=== PATIENT | male | born 1935 | race Caucasian/White ===

== ENCOUNTER 2017-01-20 17:40 | Emergency (ER) | payer BC ==
[~2017-01-20] VITALS: Ht 182.9 cm; Wt 97.5 kg
[2017-01-20] MEDS ORDERED: CYANOCOBAL1000 MCG/2 IJ (17:59)
[2017-01-20] MEDS ORDERED: HYDROCHLOROTHIA25 MG ORAL (17:59)
[2017-01-20] MEDS ORDERED: PROSCAR5 MG ORAL (17:59)
[2017-01-20] MEDS ORDERED: ELIQUIS5 MG PO (17:59)
[2017-01-20] MEDS ORDERED: NAPROXEN500 M2 ORAL (17:59)
[2017-01-20] MEDS ORDERED: METFORMIN HCL500 M1 ORAL (17:59)
[2017-01-20] MEDS ORDERED: SUCRALFATE1 GM ORAL (17:59)
[2017-01-20] MEDS ORDERED: MAPAP500 MG/15 PO (17:59)
[2017-01-20] MEDS ORDERED: ZANTAC150 MG ORAL (17:59)
[2017-01-20] MEDS ORDERED: LOSARTAN POTASS50 MG ORAL (17:59)
--- NOTE | 2017-01-20 18:16 | Emergency Room Report ---
History of Present Illness General Chief Complaint: Lower Extremity Injury Source: Patient, Medical Record Present Illness HPI Patient sustained a fall last night he reports that he was getting up to go to the restroom This morning he had pain to the right hip her course of the pain as a she significantly improved However as he lives in a boarding care facility he was requested for further imaging and emergency room evaluation Denies any syncopal episode denies any lightheadedness denies any chest pain or shortness of breath Patient point to the right inguinal area right hip region for the discomfort Denies any focal weakness denies any neuropathy Allergies: Coded Allergies: No Known Allergies (Unverified , 01/20/17) Patient History Past Medical History: see triage record Pertinent Family History: none Reviewed Nursing Documentation: PMH: Agreed, PSxH: Agreed Nursing Documentation-PMH Past Medical History: No History, Except For Hx Hypertension: Yes Hx Diabetes: Yes Hx Gastrointestinal Problems: Yes - GI bleed Review of Systems All Other Systems: negative except mentioned in HPI Physical Exam Vital Signs Date Time Temp Pulse Resp B/P Pulse Ox O2 Delivery O2 Flow Rate FiO2 01/20/17 17:45 97.9 84 18 132/74 98 Room Air Sp02 EP Interpretation: reviewed, normal General Appearance: well appearing, no apparent distress Head: normocephalic, atraumatic Eyes: bilateral eye EOMI, bilateral eye PERRL ENT: hearing grossly normal, normal pharynx, TMs + canals normal, uvula midline Neck: full range of motion, supple, no meningismus, no bony tend Respiratory: lungs clear, normal breath sounds, no rhonchi, no respiratory distress, no retraction, no accessory muscle use Cardiovascular #1: normal peripheral pulses, regular rate, rhythm, no edema, no gallop, no JVD, no murmur Gastrointestinal: normal bowel sounds, non tender, soft, no organomegaly, non- distended, no guarding, no pulsatile mass, no rebound, other - Right inguinal hernia Genitourinary: no CVA tenderness Musculoskeletal: other - Patient is able to pronate and supinate the right lower extremity, he was able to lift any, neurovascularly intact Neurologic: oriented x3, responsive, motor strength/tone normal, sensory intact Psychiatric: mood/affect normal Skin: normal color, no rash, warm/dry, palpation normal Lymphatic: normal inspection, no adenopathy Medical Decision Making Diagnostic Impression: Primary Impression: Contusion of hip Additional Impression: Hernia ER Course Given the patient's complaints and presentation Imaging study was obtained At this time patient CT did not show any obvious acute fracture There was questionable stranding noted somewhat nonspecific This is clinically likely in line with the patient's inguinal hernia Patient stable for close outpatient followup Rhythm Strip Diag. Results EP Interpretation: yes Rate: 88 Rhythm: NSR, no PVC's, no ectopy CT/MRI/US Diagnostic Results CT/MRI/US Diagnostic Results : Impression CT pelvic: Impression: No acute fracture identified. 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 Lower lumbar spondylosis Atherosclerotic vascular disease Moderate size right inguinal hernia containing bowel. Please correlate clinically and evaluate for incarceration. Last Vital Signs Date Time Temp Pulse Resp B/P Pulse Ox O2 Delivery O2 Flow Rate FiO2 01/20/17 17:45 97.9 84 18 132/74 98 Room Air Status: improved Disposition: XFER SNF Condition: Improved Additional Instructions: Patient is provided with the discharge instructions notified to follow up with primary doctor in the next 2-3 days otherwise return to the er with any worsening symptoms. Please note that this report is being documented using BeMyGuest technology. This can lead to erroneous entry secondary to incorrect interpretation by the dictating instrument. CAMERON SKELTON D.O. Jan 20, 2017 18:16
[2017-01-20 19:15] VITALS: BP 119/67
--- NOTE | 2017-01-21 09:40 | Diagnostic Imaging Report ---
Indication: Abdominal pain Technique: Continuous helical transaxial imaging of the pelvis was obtained from the iliac crest to the pubic symphysis. Coronal 2-D reformats were also obtained. Study obtained in a Siemens sensation [address] Total Dose length Product (DLP): [address] Dose Index Volume (CTDIvol): 18 mGy Comparison: None Findings: The bones are osteopenic. There is no acute fracture identified. There is no malalignment. Degenerative changes of both hips and sacroiliac joints characterized by periarticular osteophytes and joint space narrowing noted. Degenerative changes of the lower lumbar spine with vacuum phenomena and hypertrophic spurs noted. There is a right inguinal hernia containing bowel. Please correlate clinically. Arterial vascular calcifications are moderate. Impression: No acute fracture identified. 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 Lower lumbar spondylosis Atherosclerotic vascular disease Moderate size right inguinal hernia containing bowel. Please correlate clinically and evaluate for incarceration. Dr. Carr has communicated the preliminary results to the Emergency Department. There are no significant discrepancies. The CT scanner at [facility] is accredited by the [employer] and the scans are performed using dose optimization techniques as appropriate to a performed exam including Automatic Exposure control.
== END 2017-01-20 21:00 ==
LOC: EDBD 17:40 → EMR 18:40
DX: S70.01XA Contusion of right hip, initial encounter (principal); W19.XXXA Unspecified fall, initial encounter; Y93.9 Activity, unspecified; Y92.9 Unspecified place or not applicable; I10 Essential (primary) hypertension; E11.9 Type 2 diabetes mellitus without complications; K40.90 Unilateral inguinal hernia, without obstruction or gangrene, not specified as recurrent; M47.896 Other spondylosis, lumbar region; I70.90 Unspecified atherosclerosis; M85.88 Other specified disorders of bone density and structure, other site
CPT/HCPCS: 72192; 99284

== ENCOUNTER 2017-05-16 17:46 | Inpatient (IN) | payer BC ==
[~2017-05-16] VITALS: Ht 190.5 cm; Wt 90.3 kg
[~2017-05-16 17:46] MED LIST: CYANOCOBAL1000 MCG/2 IJ; ELIQUIS5 MG PO; HYDROCHLOROTHIA25 MG ORAL; LOSARTAN POTASS50 MG ORAL; MAPAP500 MG/15 PO; METFORMIN HCL500 M1 ORAL; NAPROXEN500 M2 ORAL; PROSCAR5 MG ORAL; SUCRALFATE1 GM ORAL; ZANTAC150 MG ORAL
[2017-05-16 18:33] LABS: BASOPHILS % (AUTO) 0.5 % (0.0-2.0); EOSINOPHILS % (AUTO) 0.6 % (0.0-3.0); LYMPHOCYTES % (AUTO) 3.2 % (20.0-45.0); MEAN CORPUSCULAR HEMOGLOBIN 30.6 PG (27.0-31.0); MEAN CORPUSCULAR HGB CONC 32.8 G/DL (32.0-36.0); MEAN CORPUSCULAR VOLUME 94 FL (80-99); MEAN PLATELET VOLUME 4.8 FL (6.5-10.1); MONOCYTES % (AUTO) 6.1 % (1.0-10.0); NEUTROPHILS % (AUTO) 89.7 % (45.0-75.0); PLATELET COUNT 273 K/UL (150-450); RED BLOOD COUNT 3.92 M/UL (4.70-6.10); RED CELL DISTRIBUTION WIDTH 13.4 % (11.6-14.8); WHITE BLOOD COUNT 13.7 K/UL (4.8-10.8)
[2017-05-16 18:35] VITALS: BP 124/67
[2017-05-16 18:38] LABS: PROTHROMBIN TIME 10.7 SEC (9.30-11.50)
[2017-05-16 18:46] LABS: ALANINE AMINOTRANSFERASE 7 U/L (3-41); ALBUMIN/GLOBULIN RATIO 1.4 (1.0-2.7); ANION GAP 14 (5-15); ASPARTATE AMINO TRANSFERASE 14 U/L (5-40); CARBON DIOXIDE 23 mEQ/L (20-30); CHLORIDE 92 mEQ/L (98-107); HEMOLYSIS 3; SODIUM 129 mEQ/L (135-145); TOTAL PROTEIN 6.6 g/dL (6.6-8.7); TROPONIN I < 0.30 ng/mL (<=0.30)
[2017-05-16 18:52] LABS: REFLEX LACTIC ACID YES OR NO YES
[2017-05-16 18:57] LABS: CKMB 2.5 ng/mL (< 6.7)
[2017-05-16] MEDS ORDERED: CARVEDILOL6.25 MG ORAL (18:58)
[2017-05-16] MEDS ORDERED: LEXAPRO10 MG ORAL (18:58)
[2017-05-16] MEDS ORDERED: MAPAP500 M2 PO (19:00)
[2017-05-16] MEDS ORDERED: EC-NAPROSYN500 MG PO (19:01)
[2017-05-16] MEDS ORDERED: ZANTAC150 MG ORAL (19:01)
[2017-05-16] MEDS ORDERED: CARAFATE1 G1 ORAL (19:01)
[2017-05-16] MEDS ORDERED: OXYBUTYNIN CHLOR5 M2 PO (19:01)
[2017-05-16] MEDS ORDERED: VITAMIN D22000 UNIT PO (19:04)
[2017-05-16] MEDS ORDERED: TAMSULOSIN HCL0.4 MG ORAL (19:04)
[2017-05-16] MEDS ORDERED: VITAMIN B-12100 MC1 PO (19:04)
[2017-05-16] MEDS ORDERED: BENZONATATE100 MG ORAL (19:05)
[2017-05-16] MEDS ORDERED: ZYRTEC10 MG ORAL (19:05)
[2017-05-16] MEDS ORDERED: LIDODERM700 M1 TOPIC (19:06)
[2017-05-16] MEDS ORDERED: DOCUSATE SODIU100 MG ORAL (19:06)
[2017-05-16] MEDS ORDERED: TRAZODONE HCL100 MG ORAL (19:07)
[2017-05-16 19:18] VITALS: BP 119/73
[2017-05-16] MEDS ORDERED: Ampicillin/Sulbactam Sod 3 GM in NS 110 ML IVPB ONE (19:30)
[2017-05-16 19:48] LABS: APPEARANCE,URINE SLIGHTLY CLOUDY; KETONES,URINE 1+ (NEGATIVE); LEUKOCYTE ESTERASE ,URINE 2+ (NEGATIVE); NITRITE,URINE POSITIVE (NEGATIVE); PH,URINE 6 (4.5-8.0); PROTEIN,URINE 1+ (NEGATIVE); UROBILINOGEN,URINE NORMAL MG/DL (0.0-1.0)
[2017-05-16] MEDS ORDERED: Unasyn 3gm Inj ONE (19:48)
[2017-05-16 19:59] LABS: BACTERIA,URINE MANY /HPF; RBC,URINE 0-2 /HPF (0 - 0); WBC,URINE 20-30 /HPF (0 - 0)
[2017-05-16 20:30] VITALS: BP 122/70
[2017-05-16 22:15] VITALS: BP 120/68
[2017-05-16] MEDS ORDERED: Albuterol/Ipratropium 3ml neb HHN PRN (22:45)
[2017-05-16] MEDS ORDERED: Nitroglycerin Subl 0.4mg tab SL PRN (22:45)
[2017-05-16] MEDS ORDERED: Miralax 17gm pkt ORAL PRN (22:45)
[2017-05-16] MEDS ORDERED: Morphine Sulfate 2mg/ml Inj IVP PRN (22:45)
[2017-05-16 23:50] VITALS: BP 122/70
--- NOTE | 2017-05-17 00:28 | Emergency Room Report ---
History of Present Illness General Chief Complaint: Generalized Weakness Source: Patient, EMS Present Illness HPI This is an 82-year-old male who presented after increased weakness. Patient gradual onset of symptoms. The patient having increased difficulty standing. Patient had the abuse of been able to ambulate with a walker. Patient has a power of employment law attorney who I attempted to contact however he was unavailable. The patient reports having previously been living at [facility]. The patient any fever. He denied any difficulty with urination. History is limited by patient's mental status Allergies: Coded Allergies: No Known Allergies (Unverified , 01/20/17) Patient History Reviewed Nursing Documentation: PMH: Agreed, PSxH: Agreed Nursing Documentation-PMH Past Medical History: No History, Except For Hx Hypertension: Yes Hx Pacemaker: No - ANEMIA Hx Diabetes: Yes Hx Gastrointestinal Problems: Yes - HERNIA, GI BLEED, BPH Review of Systems All Other Systems: limited - by mental status Physical Exam Vital Signs Date Time Temp Pulse Resp B/P (MAP) Pulse Ox O2 Delivery O2 Flow Rate FiO2 05/16/17 17:40 136 16 138/78 95 Room Air 05/16/17 18:35 97.6 Sp02 EP Interpretation: reviewed, normal General Appearance: normal inspection, well appearing, alert, mild distress, other - GCS 14 confused, Chronically Ill Head: atraumatic ENT: normal ENT inspection, hearing grossly normal, normal voice Neck: normal inspection, full range of motion, supple, no bony tend Respiratory: normal inspection, lungs clear, normal breath sounds, no respiratory distress, no retraction, no wheezing Cardiovascular #1: no edema, tachycardia Gastrointestinal: normal inspection, normal bowel sounds, non tender, soft, no guarding, no hernia Genitourinary: no CVA tenderness Musculoskeletal: normal inspection, back normal, normal range of motion Neurologic: normal inspection, alert, responsive, speech normal, motor weakness - bilateral lower extremity, dtr slight diminished but present bilateral patellar Psychiatric: normal inspection, judgement/insight normal, mood/affect normal Skin: normal inspection, normal color, no rash Medical Decision Making Diagnostic Impression: Primary Impression: Sepsis Additional Impressions: Urinary tract infection Weakness of both legs ER Course Patient presented generalized weakness. Differential diagnosis included was not limited to anemia, urinary tract infection, electrolyte abnormality, hypothyroidism, myocardial infarction, myasthenia gravis, dehydration, among others. Because of complexity of patient's case laboratory testing and imaging studies were ordered.Patient was noted to have evidence of the bilateral lower extremity weakness. This may represent Guillanne Corona however patient does appear to have evidence of sepsis. The patient was noted to be afebrile. Dr. Jorge Luis Lindsey was contacted and requested the patient be admitted to Dr. evans for inpatient management. Chest Xray interpreted by me 1 view showed no evident infiltrate, normal mediastinum, and normal cardiac size. Right hemidiaphragm is elevated Labs Test 05/16/17 18:20 05/16/17 19:35 05/16/17 20:25 White Blood Count 13.7 K/UL (4.8-10.8) Red Blood Count 3.92 M/UL (4.70-6.10) Hemoglobin 12.0 G/DL (14.2-18.0) Hematocrit 36.6 % (42.0-52.0) Mean Corpuscular Volume 94 FL (80-99) Mean Corpuscular Hemoglobin 30.6 PG (27.0-31.0) Mean Corpuscular Hemoglobin Concent 32.8 G/DL (32.0-36.0) Red Cell Distribution Width 13.4 % (11.6-14.8) Platelet Count 273 K/UL (150-450) Mean Platelet Volume 4.8 FL (6.5-10.1) Neutrophils (%) (Auto) 89.7 % (45.0-75.0) Lymphocytes (%) (Auto) 3.2 % (20.0-45.0) Monocytes (%) (Auto) 6.1 % (1.0-10.0) Eosinophils (%) (Auto) 0.6 % (0.0-3.0) Basophils (%) (Auto) 0.5 % (0.0-2.0) Prothrombin Time 10.7 SEC (9.30-11.50) Prothromb Time International Ratio 1.0 (0.9-1.1) Activated Partial Thromboplast Time 29 SEC (23-33) Sodium Level 129 mEQ/L (135-145) Potassium Level 4.0 mEQ/L (3.4-4.9) Chloride Level 92 mEQ/L (98-107) Carbon Dioxide Level 23 mEQ/L (20-30) Anion Gap 14 (5-15) Blood Urea Nitrogen 11 mg/dL (7-23) Creatinine 1.0 mg/dL (0.7-1.2) Estimat Glomerular Filtration Rate mL/min (>60) Glucose Level 175 mg/dL (74-106) Calcium Level 9.0 mg/dL (8.6-10.2) Total Bilirubin 0.5 mg/dL (0.0-1.2) Aspartate Amino Transf (AST/SGOT) 14 U/L (5-40) Alanine Aminotransferase (ALT/SGPT) 7 U/L (3-41) Alkaline Phosphatase 80 U/L (40-129) Total Creatine Kinase 65 U/L (38-174) Creatine Kinase MB 2.5 ng/mL (< 6.7) Creatine Kinase MB Relative Index 3.8 Troponin I < 0.30 ng/mL (<=0.30) Total Protein 6.6 g/dL (6.6-8.7) Albumin 3.9 g/dL (3.5-5.2) Globulin 2.7 g/dL Albumin/Globulin Ratio 1.4 (1.0-2.7) Urine Color Pale yellow Urine Appearance Slightly cloudy Urine pH 6 (4.5-8.0) Urine Specific [place] 1.010 (1.005-1.035) Urine Protein 1+ (NEGATIVE) Urine Glucose (UA) Negative (NEGATIVE) Urine Ketones 1+ (NEGATIVE) Urine Occult Blood Negative (NEGATIVE) Urine Nitrite Positive (NEGATIVE) Urine Bilirubin Negative (NEGATIVE) Urine Urobilinogen Normal MG/DL (0.0-1.0) Urine Leukocyte Esterase 2+ (NEGATIVE) Urine RBC 0-2 /HPF (0 - 0) Urine WBC 20-30 /HPF (0 - 0) Urine Squamous Epithelial Cells None /LPF (NONE/OCC) Urine Bacteria Many /HPF (NONE) Lactic Acid Level 1.50 mmol/L (0.66-2.22) EKG Diagnostic Results Rate: normal Rhythm: NSR ST Segments: no acute changes ASA given to the pt in ED: No Rhythm Strip Diag. Results EP Interpretation: yes Rhythm: NSR, no PVC's Last Vital Signs Date Time Temp Pulse Resp B/P (MAP) Pulse Ox O2 Delivery O2 Flow Rate FiO2 05/17/17 00:05 98.3 86 16 122/70 97 Room Air Status: improved Disposition: ADMITTED INPATIENT Condition: Serious Referrals: NON PHYSICIAN (PCP) Isak Voss May 17, 2017 00:28
[2017-05-17] MEDS ORDERED: Vancomycin 1 GM in D5W 275 ML IV SCH (00:30)
[2017-05-17] MEDS ORDERED: Vancomycin 1gm inj IVPB ONE (01:19)
[2017-05-17 01:37] LABS: APPEARANCE,URINE CLEAR; KETONES,URINE 1+ (NEGATIVE); LEUKOCYTE ESTERASE ,URINE 1+ (NEGATIVE); NITRITE,URINE NEGATIVE (NEGATIVE); PH,URINE 6 (4.5-8.0); PROTEIN,URINE 2+ (NEGATIVE); UROBILINOGEN,URINE NORMAL MG/DL (0.0-1.0)
[2017-05-17 01:49] LABS: RBC,URINE 0 /HPF (0 - 0); WBC,URINE 0-2 /HPF (0 - 0)
[2017-05-17 04:21] VITALS: BP 116/78
[2017-05-17 04:22] VITALS: BP 122/75
[2017-05-17] MEDS: NovoLOG Insulin Flexpen SUBQ SCH ×4 (06:30→20:41)
[2017-05-17 08:00] VITALS: BP 141/82
[2017-05-17] MEDS ORDERED: Heparin 5000 units/ml inj SUBQ SCH (09:00)
[2017-05-17] MEDS ORDERED: Cefepime HCl 2 GM in D5W 110 ML IV SCH (09:00)
--- NOTE | 2017-05-17 10:01 | Consultation ---
Consult Note Consult Note ID DIC # [id number] JENIFER GARCIA M.D. May 17, 2017 10:01
[2017-05-17 10:23] LABS: BASOPHILS % (AUTO) 0.9 % (0.0-2.0); EOSINOPHILS % (AUTO) 3.4 % (0.0-3.0); MEAN CORPUSCULAR HEMOGLOBIN 30.7 PG (27.0-31.0); MEAN CORPUSCULAR HGB CONC 32.6 G/DL (32.0-36.0); MEAN CORPUSCULAR VOLUME 94 FL (80-99); MEAN PLATELET VOLUME 5.1 FL (6.5-10.1); MONOCYTES % (AUTO) 10.8 % (1.0-10.0); NEUTROPHILS % (AUTO) 66.9 % (45.0-75.0); PLATELET COUNT 287 K/UL (150-450); RED BLOOD COUNT 4.08 M/UL (4.70-6.10); RED CELL DISTRIBUTION WIDTH 13.9 % (11.6-14.8); WHITE BLOOD COUNT 6.5 K/UL (4.8-10.8)
[2017-05-17] MEDS: Carvedilol 6.25mg Tab ORAL SCH ×2 (10:32→20:41)
[2017-05-17] MEDS: Losartan 50mg tab ORAL SCH (10:32)
[2017-05-17 10:38] LABS: ALANINE AMINOTRANSFERASE 6 U/L (3-41); ALBUMIN/GLOBULIN RATIO 1.3 (1.0-2.7); ANION GAP 10 (5-15); ASPARTATE AMINO TRANSFERASE 14 U/L (5-40); CALCIUM 9.8 mg/dL (8.6-10.2); CARBON DIOXIDE 31 mEQ/L (20-30); CHLORIDE 97 mEQ/L (98-107); CREATININE 0.9 mg/dL (0.7-1.2); HEMOLYSIS 3; POTASSIUM 4.8 mEQ/L (3.4-4.9); SODIUM 138 mEQ/L (135-145); TOTAL PROTEIN 6.7 g/dL (6.6-8.7)
[2017-05-17] MEDS: Enoxaparin 100mg Inj SUBQ SCH ×2 (10:40→20:40)
[2017-05-17 12:00] VITALS: BP 139/82
--- NOTE | 2017-05-17 12:09 | Diagnostic Imaging Report ---
Indication: Shortness of breath Comparison: None Findings: Single view the chest shows normal cardiac size. Pulmonary vasculature normal. Lungs are clear. There is elevation of the right hemidiaphragm. Bones unremarkable. Impression: No acute chest disease Elevated right hemidiaphragm.
[2017-05-17] MEDS ORDERED: Azithromycin 500 MG in D5W 275 ML IV SCH (15:00)
--- NOTE | 2017-05-17 15:13 | History and Physical ---
History of Present Illness General Date patient seen: May 17, 2017 Reason for Hospitalization: Generalized Weakness Present Illness HPI 82-year-old male who presented after increased weakness. Patient gradual onset of symptoms. The patient having increased difficulty standing. Patient had the abuse of been able to ambulate with a walker. Patient has a power of [employer] rep who I attempted to contact however he was unavailable. The patient reports having previously been living at [facility]. The patient any fever. He denied any difficulty with urination. History is limited by patient' s mental status Allergies: Coded Allergies: No Known Allergies (Unverified , 01/20/17) Medication History Scheduled Acetaminophen (Mapap), 500 MG PO TID, (Reported) Acetaminophen (Mapap), 1,000 MG PO TID, (Reported) Apixaban (Eliquis), 5 MG PO BID, (Reported) Carvedilol* (Carvedilol*), 6.25 MG ORAL EVERY 12 HOURS, (Reported) Cyanocobalamin (Vitamin B-12) (Cyanocobalamin Injection), 1,000 MCG IJ ONCE A WEEK, (Reported) Cyanocobalamin (Vitamin B-12) (Vitamin B-12), 100 MCG PO DAILY, (Reported) Ergocalciferol (Vitamin D2) (Vitamin D2), 50,000 UNIT PO ONCE A WEEK, (Reported) Escitalopram Oxalate* (Lexapro*), 10 MG ORAL DAILY, (Reported) Finasteride* (Proscar*), 5 MG ORAL DAILY, (Reported) Hydrochlorothiazide* (Hydrochlorothiazide*), 25 MG ORAL DAILY, (Reported) Losartan Potassium* (Losartan Potassium*), 50 MG ORAL DAILY, (Reported) Metformin Hcl* (Metformin Hcl*), 500 MG ORAL DAILY, (Reported) Naproxen (Ec-Naprosyn), 500 MG PO BID, (Reported) Naproxen* (Naproxen*), 500 MG ORAL TWICE A WEEK, (Reported) Oxybutynin Chloride (Oxybutynin Chloride Er), 5 MG PO DAILY, (Reported) Ranitidine Hcl* (Zantac*), 300 MG ORAL DAILY, (Reported) Sucralfate* (Carafate*), 1 GM ORAL FOUR TIMES A DAY, (Reported) Tamsulosin Hcl (Tamsulosin Hcl*), 0.4 MG ORAL BEDTIME, (Reported) Trazodone Hcl* (Desyrel*), 100 MG ORAL BEDTIME, (Reported) Scheduled PRN Benzonatate* (Benzonatate*), 100 MG ORAL EVERY 8 HOURS PRN for For Cough, ( Reported) Cetirizine Hcl* (Zyrtec*), 10 MG ORAL DAILY PRN for allergy, (Reported) Docusate Sodium* (Docusate Sodium*), 200 MG ORAL DAILY PRN for Constipation, ( Reported) Lidocaine (Lidoderm), 1 PATCH TOPIC DAILY PRN for For Pain, (Reported) Patient History Healthcare decision maker Resuscitation status Full Code Advanced Directive on File Yes Past Medical/Surgical History Past Medical/Surgical History: (1) Diabetes mellitus (2) Hypertension Review of Systems All Other Systems: negative except mentioned in HPI Physical Exam General Appearance: WD/WN Lines, tubes and drains: peripheral HEENT: normocephalic, atraumatic Neck: non-tender, normal alignment, supple Respiratory/Chest: chest wall non-tender, lungs clear Cardiovascular/Chest: normal peripheral pulses, normal rate Abdomen: normal bowel sounds, non tender Genitourinary/Rectal: normal genital exam, heme negative stool Last 24 Hour Vital Signs Date Time Temp Pulse Resp B/P (MAP) Pulse Ox O2 Delivery O2 Flow Rate FiO2 05/17/17 12:00 71 05/17/17 12:00 97.5 77 18 139/82 97 Room Air 05/17/17 10:32 141/82 05/17/17 10:32 80 141/82 05/17/17 08:00 97.9 80 18 141/82 96 Room Air 05/17/17 08:00 71 05/17/17 07:45 98 Room Air 21 05/17/17 07:45 Room Air 21 05/17/17 04:22 97.5 78 20 122/75 98 Room Air 78 05/17/17 04:21 97.5 85 18 116/78 96 Room Air 05/17/17 04:00 72 05/17/17 00:05 98.3 86 16 122/70 97 Room Air 05/17/17 00:02 84 05/16/17 23:50 98.3 86 16 122/70 97 Room Air 05/16/17 22:15 98.5 102 16 120/68 96 Room Air 05/16/17 20:30 98.1 118 18 122/70 96 Room Air 05/16/17 19:18 98.1 116 20 119/73 95 Room Air 05/16/17 18:35 97.6 120 22 124/67 96 Room Air 05/16/17 17:40 136 16 138/78 95 Room Air Intake and Output 05/17/17 05/18/17 19:00 07:00 Intake Total 700 ml Output Total 400 ml Balance 300 ml Intake Oral 480 ml IV Total 220 ml Output Urine Total 400 ml Laboratory Tests Test 05/16/17 18:20 05/16/17 19:35 05/16/17 20:25 05/17/17 10:09 White Blood Count 13.7 K/UL (4.8-10.8) H 6.5 K/UL (4.8-10.8) # Red Blood Count 3.92 M/UL (4.70-6.10) L 4.08 M/UL (4.70-6.10) L Hemoglobin 12.0 G/DL (14.2-18.0) L 12.6 G/DL (14.2-18.0) L Hematocrit 36.6 % (42.0-52.0) L 38.4 % (42.0-52.0) L Mean Corpuscular Volume 94 FL (80-99) 94 FL (80-99) Mean Corpuscular Hemoglobin 30.6 PG (27.0-31.0) 30.7 PG (27.0-31.0) Mean Corpuscular Hemoglobin Concent 32.8 G/DL (32.0-36.0) 32.6 G/DL (32.0-36.0) Red Cell Distribution Width 13.4 % (11.6-14.8) 13.9 % (11.6-14.8) Platelet Count 273 K/UL (150-450) 287 K/UL (150-450) Mean Platelet Volume 4.8 FL (6.5-10.1) L 5.1 FL (6.5-10.1) L Neutrophils (%) (Auto) 89.7 % (45.0-75.0) H 66.9 % (45.0-75.0) Lymphocytes (%) (Auto) 3.2 % (20.0-45.0) L 18.0 % (20.0-45.0) L Monocytes (%) (Auto) 6.1 % (1.0-10.0) 10.8 % (1.0-10.0) H Eosinophils (%) (Auto) 0.6 % (0.0-3.0) 3.4 % (0.0-3.0) H Basophils (%) (Auto) 0.5 % (0.0-2.0) 0.9 % (0.0-2.0) Prothrombin Time 10.7 SEC (9.30-11.50) Prothromb Time International Ratio 1.0 (0.9-1.1) Activated Partial Thromboplast Time 29 SEC (23-33) Sodium Level 129 mEQ/L (135-145) L 138 mEQ/L (135-145) Potassium Level 4.0 mEQ/L (3.4-4.9) 4.8 mEQ/L (3.4-4.9) Chloride Level 92 mEQ/L (98-107) L 97 mEQ/L (98-107) L Carbon Dioxide Level 23 mEQ/L (20-30) 31 mEQ/L (20-30) H Anion Gap 14 (5-15) 10 (5-15) Blood Urea Nitrogen 11 mg/dL (7-23) 8 mg/dL (7-23) Creatinine 1.0 mg/dL (0.7-1.2) 0.9 mg/dL (0.7-1.2) Estimat Glomerular Filtration Rate mL/min (>60) mL/min (>60) Glucose Level 175 mg/dL (74-106) H 117 mg/dL (74-106) H Lactic Acid Level 3.00 mmol/L (0.66-2.22) H 1.50 mmol/L (0.66-2.22) Calcium Level 9.0 mg/dL (8.6-10.2) 9.8 mg/dL (8.6-10.2) Total Bilirubin 0.5 mg/dL (0.0-1.2) 0.6 mg/dL (0.0-1.2) Aspartate Amino Transf (AST/SGOT) 14 U/L (5-40) 14 U/L (5-40) Alanine Aminotransferase (ALT/SGPT) 7 U/L (3-41) 6 U/L (3-41) Alkaline Phosphatase 80 U/L (40-129) 79 U/L (40-129) Total Creatine Kinase 65 U/L (38-174) Creatine Kinase MB 2.5 ng/mL (< 6.7) Creatine Kinase MB Relative Index 3.8 Troponin I < 0.30 ng/mL (<=0.30) Total Protein 6.6 g/dL (6.6-8.7) 6.7 g/dL (6.6-8.7) Albumin 3.9 g/dL (3.5-5.2) 3.9 g/dL (3.5-5.2) Globulin 2.7 g/dL 2.8 g/dL Albumin/Globulin Ratio 1.4 (1.0-2.7) 1.3 (1.0-2.7) Urine Color Pale yellow Urine Appearance Clear Urine pH 6 (4.5-8.0) Urine Specific [place] 1.015 (1.005-1.035) Urine Protein 2+ (NEGATIVE) H Urine Glucose (UA) Negative (NEGATIVE) Urine Ketones 1+ (NEGATIVE) H Urine Occult Blood Negative (NEGATIVE) Urine Nitrite Negative (NEGATIVE) Urine Bilirubin Negative (NEGATIVE) Urine Urobilinogen Normal MG/DL (0.0-1.0) Urine Leukocyte Esterase 1+ (NEGATIVE) H Urine RBC 0 /HPF (0 - 0) Urine WBC 0-2 /HPF (0 - 0) Urine Squamous Epithelial Cells None /LPF (NONE/OCC) Urine Bacteria None /HPF (NONE) Urine Osmolality 489 mOsm/kg (429-449) H Urine Random Sodium 120 mmol/L Height (Feet): 6 Height (Inches): 3.00 Weight (Pounds): 199 Medications Current Medications Medications (Trade) Dose Ordered Sig/Leisa Route PRN Reason Start Time Stop Time Status Last Admin Dose Admin Acetaminophen (Tylenol) 650 mg Q4H PRN ORAL fever 05/16/17 22:45 06/15/17 22:44 Albuterol/ Ipratropium (DuoNeb 0.5-3(2.5)mg/3ml) 3 ml EVERY 4 HOURS PRN HHN Shortness of Breath 05/16/17 22:45 05/21/17 22:44 Azithromycin 500 mg/Dextrose 275 ml @ 275 mls/hr Q24HRS IV 05/17/17 15:00 05/23/17 15:59 05/17/17 15:12 Carvedilol (Coreg) 6.25 mg EVERY 12 HOURS ORAL 05/17/17 09:00 06/16/17 08:59 05/17/17 10:32 Dextrose (Dextrose 50%) STAT PRN IV Hypoglycemia 05/16/17 22:45 06/15/17 22:44 Enoxaparin Sodium (Lovenox) 90 mg EVERY 12 HOURS SUBQ 05/17/17 10:30 06/16/17 10:29 05/17/17 10:40 Escitalopram Oxalate (Lexapro) 10 mg DAILY ORAL 05/17/17 09:00 06/16/17 08:59 05/17/17 10:32 Insulin Aspart (NovoLOG) BEFORE MEALS AND HS SUBQ 05/17/17 06:30 06/16/17 06:29 05/17/17 11:41 Losartan Potassium (Cozaar) 50 mg DAILY ORAL 05/17/17 09:00 06/16/17 08:59 05/17/17 10:32 Morphine Sulfate (Morphine Sulfate) 2 mg EVERY 4 HOURS PRN IVP Moderate Pain (Pain Scale 4-6) 05/16/17 22:45 05/23/17 22:44 Nitroglycerin (Ntg) 0.4 mg Every 5 Minutes PRN SL Prn Chest Pain 05/16/17 22:45 06/15/17 22:44 Ondansetron HCl (Zofran) 4 mg Q6H PRN IVP Nausea & Vomiting 05/16/17 22:45 06/15/17 22:44 Polyethylene Glycol (Miralax) 17 gm DAILYPRN PRN ORAL Constipation 05/16/17 22:45 06/15/17 22:44 Tamsulosin HCl (Flomax) 0.4 mg BEDTIME ORAL 05/17/17 21:00 06/16/17 20:59 Trazodone HCl (Desyrel) 100 mg BEDTIME ORAL 05/17/17 21:00 06/16/17 20:59 Warfarin Sodium (Coumadin per pharmacy) 1 ea DAILY PRN MISC Per rx protocol 05/17/17 10:15 06/16/17 10:14 Warfarin Sodium (Coumadin) 5 mg COUMADIN ONCE ORAL 05/17/17 17:00 05/17/17 17:01 Assessment/Plan Problem List: (1) Sepsis ICD Codes: A41.9 - Sepsis, unspecified organism SNOMED: 71549738 (2) Urinary tract infection ICD Codes: N39.0 - Urinary tract infection, site not specified SNOMED: 39309795 (3) Hypertension ICD Codes: I10 - Essential (primary) hypertension SNOMED: 75792715 (4) Diabetes mellitus ICD Codes: E11.9 - Type 2 diabetes mellitus without complications SNOMED: 04327053 (5) Weakness of both legs ICD Codes: R29.898 - Other symptoms and signs involving the musculoskeletal system SNOMED: 5179792 (6) Episode of generalized weakness ICD Codes: R53.1 - Weakness SNOMED: 31950126 Assessment/Plan IV abx garcia culture f/u urine cultures sliding scale diabetic diet. NANCI FULTON May 17, 2017 15:13
[2017-05-17 16:56] VITALS: BP 137/72
[2017-05-17] MEDS ORDERED: Warfarin Sodium 5mg ORAL ONE (17:00)
[2017-05-17 17:29] LABS: APPEARANCE,URINE CLEAR; KETONES,URINE NEGATIVE (NEGATIVE); NITRITE,URINE NEGATIVE (NEGATIVE); PH,URINE 7 (4.5-8.0); PROTEIN,URINE NEGATIVE (NEGATIVE); UROBILINOGEN,URINE NORMAL MG/DL (0.0-1.0)
[2017-05-17] MEDS ORDERED: D5W 275ml ONE (17:32)
[2017-05-17] MEDS ORDERED: Tubing IV Secondary IV ONE (17:32)
[2017-05-17] MEDS ORDERED: NS 275ml ONE (17:32)
[2017-05-17 17:34] LABS: LEUKOCYTE ESTERASE ,URINE NEGATIVE (NEGATIVE)
[2017-05-17 18:08] LABS: URIC ACID 5.6 mg/dL (3.0-7.5)
[2017-05-17 18:19] LABS: THYROID STIMULATING HORMONE 0.603 uIU/mL (0.300-4.500)
[2017-05-17 20:00] VITALS: BP 135/81
[2017-05-17] MEDS: Tamsulosin 0.4mg cap ORAL SCH (20:41)
[2017-05-17] MEDS: TraZODone 100mg tab ORAL SCH (20:41)
[2017-05-18] VITALS: BP_SYST 124; BP_SYST 138; BP_DIAS 74; BP_DIAS 78
[2017-05-18 00:17] LABS: RBC,URINE 0-2 /HPF (0 - 0); WBC,URINE 0-2 /HPF (0 - 0)
[2017-05-18 04:00] VITALS: BP 126/63
[2017-05-18] MEDS: NovoLOG Insulin Flexpen SUBQ SCH ×4 (06:11→21:00)
[2017-05-18 08:28] LABS: PROTHROMBIN TIME 10.9 SEC (9.30-11.50)
[2017-05-18] MEDS: Carvedilol 6.25mg Tab ORAL SCH ×2 (08:40→21:17)
[2017-05-18] MEDS: Losartan 50mg tab ORAL SCH (08:40)
[2017-05-18] MEDS: Enoxaparin 100mg Inj SUBQ SCH ×2 (08:49→21:21)
[2017-05-18 08:52] VITALS: BP 147/83
--- NOTE | 2017-05-18 09:53 | Infectious Diseases Prog Note ---
Assessment/Plan Assessment/Plan A; Pyuria/ UTI DM type 2 BPH Vitamin B12 deficiency Lactic acidosis P: Change Zithromax to Levaquin will f/u cultures Subjective ROS Limited/Unobtainable: No Constitutional: Reports: no symptoms Respiratory: Reports: no symptoms Cardiovascular: Reports: no symptoms Gastrointestinal/Abdominal: Reports: no symptoms Genitourinary: Reports: no symptoms Allergies: Coded Allergies: No Known Allergies (Unverified , 01/20/17) Objective Vital Signs Last 24 Hour Vital Signs Date Time Temp Pulse Resp B/P (MAP) Pulse Ox O2 Delivery O2 Flow Rate FiO2 05/18/17 08:52 97.8 84 19 147/83 96 Room Air 05/18/17 08:40 147/83 05/18/17 08:40 87 147/83 05/18/17 08:03 71 18 Room Air 05/18/17 04:36 99 Room Air 21 05/18/17 04:36 Room Air 21 05/18/17 04:00 97.2 68 20 126/63 95 Room Air 21 05/18/17 03:47 64 05/18/17 00:00 97.7 66 20 124/74 95 Room Air 21 05/17/17 23:51 61 05/17/17 20:41 68 135/81 05/17/17 20:00 97.7 68 20 135/81 96 Room Air 21 05/17/17 19:05 87 05/17/17 16:56 99.1 63 18 137/72 100 Room Air 05/17/17 16:00 78 05/17/17 12:00 71 05/17/17 12:00 97.5 77 18 139/82 97 Room Air 05/17/17 10:32 141/82 05/17/17 10:32 80 141/82 Height (Feet): 6 Height (Inches): 3.00 Weight (Pounds): 199 General Appearance: no acute distress HEENT: mucous membranes moist Respiratory/Chest: lungs clear Cardiovascular: normal rate Abdomen: soft, non tender Extremities: no edema Neurologic/Psychiatric: alert, oriented x 3, responsive, other - decreased hearing Microbiology Date/Time Source Procedure Growth Status 05/16/17 18:30 Blood Blood Culture - Preliminary NO GROWTH AFTER 24 HOURS Resulted 05/16/17 18:20 Blood Blood Culture - Preliminary NO GROWTH AFTER 24 HOURS Resulted Laboratory Tests Test 05/17/17 10:09 05/18/17 06:25 White Blood Count 6.5 K/UL (4.8-10.8) # Red Blood Count 4.08 M/UL (4.70-6.10) L Hemoglobin 12.6 G/DL (14.2-18.0) L Hematocrit 38.4 % (42.0-52.0) L Mean Corpuscular Volume 94 FL (80-99) Mean Corpuscular Hemoglobin 30.7 PG (27.0-31.0) Mean Corpuscular Hemoglobin Concent 32.6 G/DL (32.0-36.0) Red Cell Distribution Width 13.9 % (11.6-14.8) Platelet Count 287 K/UL (150-450) Mean Platelet Volume 5.1 FL (6.5-10.1) L Neutrophils (%) (Auto) 66.9 % (45.0-75.0) Lymphocytes (%) (Auto) 18.0 % (20.0-45.0) L Monocytes (%) (Auto) 10.8 % (1.0-10.0) H Eosinophils (%) (Auto) 3.4 % (0.0-3.0) H Basophils (%) (Auto) 0.9 % (0.0-2.0) Sodium Level 138 mEQ/L (135-145) Potassium Level 4.8 mEQ/L (3.4-4.9) Chloride Level 97 mEQ/L (98-107) L Carbon Dioxide Level 31 mEQ/L (20-30) H Anion Gap 10 (5-15) Blood Urea Nitrogen 8 mg/dL (7-23) Creatinine 0.9 mg/dL (0.7-1.2) Estimat Glomerular Filtration Rate mL/min (>60) Glucose Level 117 mg/dL (74-106) H Osmolality 287 mOsm/kg (297-317) L Uric Acid 5.6 mg/dL (3.0-7.5) Calcium Level 9.8 mg/dL (8.6-10.2) Total Bilirubin 0.6 mg/dL (0.0-1.2) Aspartate Amino Transf (AST/SGOT) 14 U/L (5-40) Alanine Aminotransferase (ALT/SGPT) 6 U/L (3-41) Alkaline Phosphatase 79 U/L (40-129) Total Protein 6.7 g/dL (6.6-8.7) Albumin 3.9 g/dL (3.5-5.2) Globulin 2.8 g/dL Albumin/Globulin Ratio 1.3 (1.0-2.7) Thyroid Stimulating Hormone (TSH) 0.603 uIU/mL (0.300-4.500) Free Thyroxine 1.56 ng/dL (0.86-1.85) Free Triiodothyronine Pending Prothrombin Time 10.9 SEC (9.30-11.50) Prothromb Time International Ratio 1.0 (0.9-1.1) Current Medications Medications (Trade) Dose Ordered Sig/Leisa Route PRN Reason Start Time Stop Time Status Last Admin Dose Admin Acetaminophen (Tylenol) 650 mg Q4H PRN ORAL fever 05/16/17 22:45 06/15/17 22:44 Albuterol/ Ipratropium (DuoNeb 0.5-3(2.5)mg/3ml) 3 ml EVERY 4 HOURS PRN HHN Shortness of Breath 05/16/17 22:45 05/21/17 22:44 Azithromycin 500 mg/Dextrose 275 ml @ 275 mls/hr Q24HRS IV 05/17/17 15:00 05/23/17 15:59 05/17/17 15:12 Carvedilol (Coreg) 6.25 mg EVERY 12 HOURS ORAL 05/17/17 09:00 06/16/17 08:59 05/18/17 08:40 Dextrose (Dextrose 50%) STAT PRN IV Hypoglycemia 05/16/17 22:45 06/15/17 22:44 Enoxaparin Sodium (Lovenox) 90 mg EVERY 12 HOURS SUBQ 05/17/17 10:30 06/16/17 10:29 05/18/17 08:49 Escitalopram Oxalate (Lexapro) 10 mg DAILY ORAL 05/17/17 09:00 06/16/17 08:59 05/18/17 08:40 Insulin Aspart (NovoLOG) BEFORE MEALS AND HS SUBQ 05/17/17 06:30 06/16/17 06:29 05/17/17 20:41 Losartan Potassium (Cozaar) 50 mg DAILY ORAL 05/17/17 09:00 06/16/17 08:59 05/18/17 08:40 Morphine Sulfate (Morphine Sulfate) 2 mg EVERY 4 HOURS PRN IVP Moderate Pain (Pain Scale 4-6) 05/16/17 22:45 05/23/17 22:44 Nitroglycerin (Ntg) 0.4 mg Every 5 Minutes PRN SL Prn Chest Pain 05/16/17 22:45 06/15/17 22:44 Ondansetron HCl (Zofran) 4 mg Q6H PRN IVP Nausea & Vomiting 05/16/17 22:45 06/15/17 22:44 Polyethylene Glycol (Miralax) 17 gm DAILYPRN PRN ORAL Constipation 05/16/17 22:45 06/15/17 22:44 Tamsulosin HCl (Flomax) 0.4 mg BEDTIME ORAL 05/17/17 21:00 06/16/17 20:59 05/17/17 20:41 Trazodone HCl (Desyrel) 100 mg BEDTIME ORAL 05/17/17 21:00 06/16/17 20:59 05/17/17 20:41 Warfarin Sodium (Coumadin per pharmacy) 1 ea DAILY PRN MISC Per rx protocol 05/17/17 10:15 06/16/17 10:14 VARSHA RAUSCH May 18, 2017 09:53
[2017-05-18] MEDS ORDERED: Levofloxacin 500mg tab ORAL SCH (11:00)
[2017-05-18 11:55] VITALS: BP 133/75
--- NOTE | 2017-05-18 12:18 | Pulmonology Progress Note ---
Assessment/Plan Problems: (1) Sepsis (2) Urinary tract infection (3) Hypertension (4) Diabetes mellitus (5) Weakness of both legs (6) Episode of generalized weakness Assessment/Plan dvt treatment hematology to see check cultures echo Subjective ROS Limited/Unobtainable: No Constitutional: Reports: no symptoms HEENT: Repors: no symptoms Respiratory: Reports: no symptoms Allergies: Coded Allergies: No Known Allergies (Unverified , 01/20/17) Objective Last 24 Hour Vital Signs Date Time Temp Pulse Resp B/P (MAP) Pulse Ox O2 Delivery O2 Flow Rate FiO2 05/18/17 11:55 98.6 80 20 133/75 95 Room Air 05/18/17 08:52 97.8 84 19 147/83 96 Room Air 05/18/17 08:40 147/83 05/18/17 08:40 87 147/83 05/18/17 08:03 71 18 Room Air 05/18/17 08:00 61 05/18/17 04:36 99 Room Air 21 05/18/17 04:36 Room Air 21 05/18/17 04:00 97.2 68 20 126/63 95 Room Air 21 05/18/17 03:47 64 05/18/17 00:00 97.7 66 20 124/74 95 Room Air 21 05/17/17 23:51 61 05/17/17 20:41 68 135/81 05/17/17 20:00 97.7 68 20 135/81 96 Room Air 21 05/17/17 19:05 87 05/17/17 16:56 99.1 63 18 137/72 100 Room Air 05/17/17 16:00 78 Intake and Output 05/18/17 05/19/17 19:00 07:00 Intake Total 240 ml Output Total 950 ml Balance -710 ml Intake Oral 240 ml Output Urine Total 950 ml # Voids 4 General Appearance: WD/WN HEENT: normocephalic, atraumatic Respiratory/Chest: chest wall non-tender, lungs clear Cardiovascular: normal peripheral pulses, normal rate Abdomen: normal bowel sounds, no organomegaly, no scars Extremities: no cyanosis, no clubbing Skin: no rash Microbiology Date/Time Source Procedure Growth Status 05/16/17 18:30 Blood Blood Culture - Preliminary NO GROWTH AFTER 24 HOURS Resulted 05/16/17 18:20 Blood Blood Culture - Preliminary NO GROWTH AFTER 24 HOURS Resulted 05/17/17 09:00 Urine,Clean Catch Urine Culture - Preliminary NO GROWTH Resulted 05/16/17 19:35 Urine,Clean Catch Urine Culture - Preliminary Gram Negative Bacillus 1 Gram Negative Bacillus 2 Resulted Laboratory Tests 05/18/17 06:25: Prothrombin Time 10.9, Prothromb Time International Ratio 1.0 Current Medications Medications (Trade) Dose Ordered Sig/Leisa Route PRN Reason Start Time Stop Time Status Last Admin Dose Admin Acetaminophen (Tylenol) 650 mg Q4H PRN ORAL fever 05/16/17 22:45 06/15/17 22:44 Albuterol/ Ipratropium (DuoNeb 0.5-3(2.5)mg/3ml) 3 ml EVERY 4 HOURS PRN HHN Shortness of Breath 05/16/17 22:45 05/21/17 22:44 Carvedilol (Coreg) 6.25 mg EVERY 12 HOURS ORAL 05/17/17 09:00 06/16/17 08:59 05/18/17 08:40 Dextrose (Dextrose 50%) STAT PRN IV Hypoglycemia 05/16/17 22:45 06/15/17 22:44 Enoxaparin Sodium (Lovenox) 90 mg EVERY 12 HOURS SUBQ 05/17/17 10:30 06/16/17 10:29 05/18/17 08:49 Escitalopram Oxalate (Lexapro) 10 mg DAILY ORAL 05/17/17 09:00 06/16/17 08:59 05/18/17 08:40 Insulin Aspart (NovoLOG) BEFORE MEALS AND HS SUBQ 05/17/17 06:30 06/16/17 06:29 05/17/17 20:41 Levofloxacin (Levaquin) 750 mg DAILY ORAL 05/18/17 11:00 05/25/17 10:59 05/18/17 11:22 Losartan Potassium (Cozaar) 50 mg DAILY ORAL 05/17/17 09:00 06/16/17 08:59 05/18/17 08:40 Morphine Sulfate (Morphine Sulfate) 2 mg EVERY 4 HOURS PRN IVP Moderate Pain (Pain Scale 4-6) 05/16/17 22:45 05/23/17 22:44 Nitroglycerin (Ntg) 0.4 mg Every 5 Minutes PRN SL Prn Chest Pain 05/16/17 22:45 06/15/17 22:44 Ondansetron HCl (Zofran) 4 mg Q6H PRN IVP Nausea & Vomiting 05/16/17 22:45 06/15/17 22:44 Polyethylene Glycol (Miralax) 17 gm DAILYPRN PRN ORAL Constipation 05/16/17 22:45 06/15/17 22:44 Tamsulosin HCl (Flomax) 0.4 mg BEDTIME ORAL 05/17/17 21:00 06/16/17 20:59 05/17/17 20:41 Trazodone HCl (Desyrel) 100 mg BEDTIME ORAL 05/17/17 21:00 06/16/17 20:59 05/17/17 20:41 Warfarin Sodium (Coumadin per pharmacy) 1 ea DAILY PRN MISC Per rx protocol 05/17/17 10:15 06/16/17 10:14 Warfarin Sodium (Coumadin) 5 mg COUMADIN ONCE ORAL 05/18/17 17:00 05/18/17 17:01 NANCI FULTON May 18, 2017 12:18
[2017-05-18 15:54] VITALS: BP 138/73
[2017-05-18] MEDS ORDERED: Warfarin Sodium 5mg ORAL ONE (17:00)
--- NOTE | 2017-05-18 19:24 | Cardiology Report ---
APPROVED REPORT EXAM: Two-dimensional and M-mode echocardiogram with Doppler and color Doppler. INDICATION LV function M-Mode DIMENSIONS IVSd1.0 (0.7-1.1cm)Left Atrium (MM)4.3 (1.6-4.0cm) LVDd4.7 (3.5-5.6cm)Aortic Root4.0 (2.0-3.7cm) PWd1.3 (0.7-1.1cm)Aortic Cusp Exc.1.8 (1.5-2.0cm) IVSs1.6 cm LVDs3.3 (2.5-4.0cm) PWs1.8 cm Technically difficult study due to poor acoustical windows. Normal left ventricular chamber size, systolic function and wall motion to extent visualized. Left ventricular ejection fraction estimated to be 55 %. Study quality precludes accurate assessment of regional wall motion. Borderline mild left ventricular hypertrophy by 2-D. Anterior Echo-free space, may be due to pericardial fat or effusion. All other cardiac chamber sizes are within normal limits. Focal aortic valve sclerosis with adequate cusp excursion. Thickened mitral valve leaflets with normal excursion. Mitral annulus and aortic root calcification. Aortic root dilatation. Pulmonic valve not well visualized. Normal tricuspid valve structure. Subcostal views not well seen. A color flow and spectral Doppler study was performed and revealed: Trace to mild aortic regurgitation. Trace mitral regurgitation. Mitral diastolic velocities suggest reduced left ventricular relaxation c/w mild LV diastolic dysfunction (Grade I). Trace to mild tricuspid regurgitation. Tricuspid systolic velocities suggests peak right ventricular systolic pressure of 31 mmHg.
[2017-05-18 20:00] VITALS: BP 136/89
--- NOTE | 2017-05-18 20:37 | General Progress Note ---
Assessment/Plan Assessment/Plan A/P 1. DVT of L iliac --> continue coumadin and lovenox --> inr goal 2-3 --> dc lovenox when inr reaches 2 2. Anemia, mild. Will order w/u 3. Leukocytosis. Resolved Subjective Constitutional: Reports: no symptoms HEENT: Reports: no symptoms Cardiovascular: Reports: no symptoms Respiratory: Reports: no symptoms Gastrointestinal/Abdominal: Reports: no symptoms Genitourinary: Reports: no symptoms Neurologic/Psychiatric: Reports: no symptoms Endocrine: Reports: no symptoms Hematologic/Lymphatic: Reports: no symptoms Allergies: Coded Allergies: No Known Allergies (Unverified , 01/20/17) Objective Last 24 Hour Vital Signs Date Time Temp Pulse Resp B/P (MAP) Pulse Ox O2 Delivery O2 Flow Rate FiO2 05/18/17 16:00 69 05/18/17 15:54 97.7 77 20 138/73 100 Room Air 05/18/17 12:00 74 05/18/17 11:55 98.6 80 20 133/75 95 Room Air 05/18/17 08:52 97.8 84 19 147/83 96 Room Air 05/18/17 08:40 147/83 05/18/17 08:40 87 147/83 05/18/17 08:03 71 18 Room Air 05/18/17 08:00 61 05/18/17 04:36 99 Room Air 21 05/18/17 04:36 Room Air 21 05/18/17 04:00 97.2 68 20 126/63 95 Room Air 21 05/18/17 03:47 64 05/18/17 00:00 97.7 66 20 124/74 95 Room Air 21 05/17/17 23:51 61 05/17/17 20:41 68 135/81 Intake and Output 05/18/17 05/19/17 19:00 07:00 Intake Total 820 ml Output Total 1150 ml Balance -330 ml Intake Oral 820 ml Output Urine Total 1150 ml # Voids 5 Laboratory Tests 05/18/17 06:25: Prothrombin Time 10.9, Prothromb Time International Ratio 1.0 Height (Feet): 6 Height (Inches): 3.00 Weight (Pounds): 199 General Appearance: no apparent distress EENT: normal ENT inspection Neck: normal alignment Cardiovascular: normal rate Respiratory/Chest: normal breath sounds Skin: warm/dry Irineo Mcgraw May 18, 2017 20:37
[2017-05-18] MEDS: TraZODone 100mg tab ORAL SCH (21:17)
[2017-05-18] MEDS: Tamsulosin 0.4mg cap ORAL SCH (21:17)
[2017-05-19] VITALS: BP 143/69
[2017-05-19 04:00] VITALS: BP 133/70
[2017-05-19] MEDS: NovoLOG Insulin Flexpen SUBQ SCH ×4 (06:06→20:36)
[2017-05-19] MEDS ORDERED: Nitroglycerin Subl 0.4mg tab SL PRN (06:45)
[2017-05-19 08:00] LABS: INR 1.1 (0.9-1.1); PROTHROMBIN TIME 11.4 SEC (9.30-11.50)
--- NOTE | 2017-05-19 08:31 | Consultation ---
DATE OF CONSULTATION: 05/17/2017 Infectious Diseases Consultation REFERRING PHYSICIAN: Mera Elder M.D. Reason For Consultation: Evaluation of the patient for pneumonia, leukocytosis, and antibiotic management. History Of Present Illness: The patient is an 82-year-old male with multiple medical problems as listed below, who was in his usual status till yesterday when he was profoundly sick and was brought to the hospital. The patient was found to have leukocytosis and possible pneumonia. The patient has been started on IV antibiotics. Infectious Diseases consultation has been requested for further evaluation of the patient's antibiotic management. PAST MEDICAL HISTORY: Significant for: 1. Hypertension. 2. History of GI bleed. 3. GERD. 4. BPH. 5. Diabetes. 6. Anemia. MEDICATIONS: Cefepime and vancomycin. ALLERGIES: No known drug allergies. SOCIAL HISTORY: Negative for alcohol or drug abuse. FAMILY HISTORY: Not contributing. PHYSICAL EXAMINATION: Vital Signs: Temperature 97.5 degrees, blood pressure 113/82, pulse 71, and respiratory rate 18. HEENT: No pale conjunctivae. No icterus. NECK: No lymphadenopathy. CHEST: Clear. HEART: S1 and S2. ABDOMEN: Soft and nontender. EXTREMITIES: No cyanosis at this time. NEUROLOGIC: He is awake and alert. Laboratory And Diagnostic Data: White blood cells 6.5, at the time of admission was 13.7, hemoglobin 12, and platelets 287. UA unremarkable. BUN 8 and creatinine 0.9. Liver function tests unremarkable. Chest x-ray, no acute process. CT of pelvis with no contrast, no acute fracture. Assessment: The patient is an 82-year-old male with multiple medical problems, who was admitted due to some weakness. The patient has: 1. Leukocytosis, that improved. 2. 02:46 bronchitis versus community-acquired pneumonia. 3. Afebrile. PLAN: 1. We will change antibiotics to Zithromax for a total of five days. 2. Monitor CBC. 3. Monitor BMP. 4. Monitor cultures (sputum, urine, blood). 5. Monitor the patient's chest x-ray. 6. Based on the patient's clinical course and laboratories, we will do further recommendation. Thank you, Dr. Elder for allowing me to participate in the care of this patient. I will follow the patient with you during this hospitalization. Norm Stone M.D. DR: Breanne JOB#: [id number] CC:
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
[2017-05-19 08:48] VITALS: BP 135/75
[2017-05-19] MEDS: Levofloxacin 500mg tab ORAL SCH (08:49)
[2017-05-19] MEDS: Losartan 50mg tab ORAL SCH (08:50)
[2017-05-19] MEDS: Enoxaparin 100mg Inj SUBQ SCH ×2 (08:51→20:35)
[2017-05-19] MEDS: Carvedilol 6.25mg Tab ORAL SCH ×2 (08:52→20:34)
[2017-05-19] MEDS ORDERED: Albuterol/Ipratropium 3ml neb HHN PRN (09:00)
[2017-05-19] MEDS ORDERED: Morphine Sulfate 2mg/ml Inj IVP PRN (09:00)
[2017-05-19 12:00] VITALS: BP 127/75
--- NOTE | 2017-05-19 12:56 | Diagnostic Imaging Report ---
APPROVED REPORT CPT Code: 69984 RIGHT LEG: Venous imaging reveals a patent deep venous system. There is no evidence of thrombus within the femoral, popliteal or tibial segments. The greater saphenous vein is also within normal limits. Doppler indicates normal spontaneous flow within these segments. LEFT LEG: Venous imaging reveals acute thrombus in the external iliac vein. Remainder of the deep venous system is within normal limits. There is no evidence of thrombus within the common femoral vein, superficial femoral, popliteal or tibial segments. ZAINA Kerr was notified of abnormal results at 8:50 hours.
--- NOTE | 2017-05-19 14:16 | Infectious Diseases Prog Note ---
Assessment/Plan Assessment/Plan A; Pyuria/ ?UTI- no dysuria but reported frequency -u/a WBC 20-30, nit +, Ucx >100K E.coli (S. Ceftriaxone, ancef, levo), 2nd GNB (ID and sensi pending) bronchitis -CXR: no acute disease Leukocytosis, improving DM type 2 BPH Vitamin B12 deficiency Lactic acidosis P: Continue Levaquin # 2/5 for presumed UTI; upon discharge, can be discharge on Keflex 500mg PO bid -s/p 3d Azithromycin 05/18 will f/u cultures -Monitor CBC/ BMP, temperatuers -Monitor the patient's chest x-ray. Dicussed with RN Subjective Allergies: Coded Allergies: No Known Allergies (Unverified , 01/20/17) Subjective afebrile leukocytosis resolved Objective Vital Signs Last 24 Hour Vital Signs Date Time Temp Pulse Resp B/P (MAP) Pulse Ox O2 Delivery O2 Flow Rate FiO2 05/19/17 12:00 97.9 80 18 127/75 94 Room Air 05/19/17 10:15 98 Room Air 21 05/19/17 10:15 Room Air 21 05/19/17 10:15 76 16 Room Air 21 05/19/17 08:52 80 135/75 05/19/17 08:50 135/75 05/19/17 08:48 97.3 80 18 135/75 97 Room Air 05/19/17 04:00 97.7 77 18 133/70 Room Air 94.0 05/19/17 00:00 98.4 78 16 143/69 95 Room Air 98.0 05/18/17 21:17 79 146/79 05/18/17 21:13 74 16 Room Air 21 05/18/17 21:13 96 Room Air 21 05/18/17 21:13 Room Air 21 05/18/17 20:00 98.2 76 20 136/89 95 Room Air 05/18/17 16:00 69 05/18/17 15:54 97.7 77 20 138/73 100 Room Air Height (Feet): 6 Height (Inches): 3.00 Weight (Pounds): 199 Objective HEENT: No pale conjunctivae. No icterus. NECK: No lymphadenopathy. CHEST: Clear. HEART: S1 and S2. ABDOMEN: Soft and nontender. EXTREMITIES: No cyanosis at this time. NEUROLOGIC: He is awake and alert. Microbiology Date/Time Source Procedure Growth Status 05/16/17 18:30 Blood Blood Culture - Preliminary NO GROWTH AFTER 48 HOURS Resulted 05/16/17 18:20 Blood Blood Culture - Preliminary NO GROWTH AFTER 48 HOURS Resulted 05/16/17 23:15 Nasal Nares MRSA Culture - Final NO METHICILLIN RESISTANT STAPH AUREUS... Complete 05/17/17 09:00 Urine,Clean Catch Urine Culture - Preliminary NO GROWTH AFTER 24 HOURS Resulted 05/16/17 19:35 Urine,Clean Catch Urine Culture - Preliminary Escherichia Coli Gram Negative Bacillus 2 Resulted 05/16/17 23:15 Rectum VRE Culture - Final NO VANCOMYCIN RESISTANT ENTEROCOCCUS ... Complete Laboratory Tests Test 05/19/17 07:20 Prothrombin Time 11.4 SEC (9.30-11.50) Prothromb Time International Ratio 1.1 (0.9-1.1) Current Medications Medications (Trade) Dose Ordered Sig/Leisa Route PRN Reason Start Time Stop Time Status Last Admin Dose Admin Acetaminophen (Tylenol) 650 mg Q4H PRN ORAL fever 05/19/17 06:45 06/15/17 22:44 Albuterol/ Ipratropium (DuoNeb 0.5-3(2.5)mg/3ml) 3 ml EVERY 4 HOURS PRN HHN Shortness of Breath 05/19/17 09:00 05/21/17 22:44 Carvedilol (Coreg) 6.25 mg EVERY 12 HOURS ORAL 05/19/17 09:00 06/16/17 08:59 05/19/17 08:52 Dextrose (Dextrose 50%) STAT PRN IV Hypoglycemia 05/19/17 22:45 06/15/17 22:44 Enoxaparin Sodium (Lovenox) 90 mg EVERY 12 HOURS SUBQ 05/19/17 09:00 06/16/17 10:29 05/19/17 08:51 Escitalopram Oxalate (Lexapro) 10 mg DAILY ORAL 05/19/17 09:00 06/16/17 08:59 05/19/17 08:52 Insulin Aspart (NovoLOG) BEFORE MEALS AND HS SUBQ 05/19/17 11:30 06/16/17 06:29 Levofloxacin (Levaquin) 750 mg DAILY ORAL 05/19/17 09:00 05/25/17 10:59 05/19/17 08:49 Losartan Potassium (Cozaar) 50 mg DAILY ORAL 05/19/17 09:00 06/16/17 08:59 05/19/17 08:50 Morphine Sulfate (Morphine Sulfate) 2 mg EVERY 4 HOURS PRN IVP Moderate Pain (Pain Scale 4-6) 05/19/17 09:00 05/23/17 22:44 Nitroglycerin (Ntg) 0.4 mg Every 5 Minutes PRN SL Prn Chest Pain 05/19/17 06:45 06/15/17 22:44 Ondansetron HCl (Zofran) 4 mg Q6H PRN IVP Nausea & Vomiting 05/19/17 10:45 06/15/17 22:44 Polyethylene Glycol (Miralax) 17 gm DAILYPRN PRN ORAL Constipation 05/19/17 22:45 06/15/17 22:44 Tamsulosin HCl (Flomax) 0.4 mg BEDTIME ORAL 05/19/17 21:00 06/16/17 20:59 Trazodone HCl (Desyrel) 100 mg BEDTIME ORAL 05/19/17 21:00 06/16/17 20:59 Warfarin Sodium (Coumadin per pharmacy) 1 ea DAILY PRN MISC Per rx protocol 05/19/17 09:00 06/16/17 10:14 Warfarin Sodium (Coumadin) 7.5 mg COUMADIN ONCE ORAL 05/19/17 17:00 05/19/17 17:01 Lynne Meng M.D. May 19, 2017 14:16
[2017-05-19 16:00] VITALS: BP 133/74
[2017-05-19] MEDS ORDERED: Warfarin Sodium 7.5mg ORAL ONE (17:00)
--- NOTE | 2017-05-19 18:37 | Pulmonology Progress Note ---
Assessment/Plan Problems: (1) Sepsis (2) Urinary tract infection (3) Hypertension (4) Diabetes mellitus (5) Weakness of both legs (6) Episode of generalized weakness Assessment/Plan dvt treatment hematology to see check cultures echo f/u INR dialy coumadin and lovenox Subjective ROS Limited/Unobtainable: No Constitutional: Reports: no symptoms HEENT: Repors: no symptoms Respiratory: Reports: no symptoms Allergies: Coded Allergies: No Known Allergies (Unverified , 01/20/17) Objective Last 24 Hour Vital Signs Date Time Temp Pulse Resp B/P (MAP) Pulse Ox O2 Delivery O2 Flow Rate FiO2 05/19/17 16:00 97.7 76 18 133/74 93 Room Air 05/19/17 12:00 97.9 80 18 127/75 94 Room Air 05/19/17 10:15 98 Room Air 21 05/19/17 10:15 Room Air 21 05/19/17 10:15 76 16 Room Air 21 05/19/17 08:52 80 135/75 05/19/17 08:50 135/75 05/19/17 08:48 97.3 80 18 135/75 97 Room Air 05/19/17 04:00 97.7 77 18 133/70 Room Air 94.0 05/19/17 00:00 98.4 78 16 143/69 95 Room Air 98.0 05/18/17 21:17 79 146/79 05/18/17 21:13 74 16 Room Air 21 05/18/17 21:13 96 Room Air 21 05/18/17 21:13 Room Air 21 05/18/17 20:00 98.2 76 20 136/89 95 Room Air General Appearance: WD/WN HEENT: normocephalic Respiratory/Chest: chest wall non-tender, lungs clear Cardiovascular: normal peripheral pulses, normal rate Abdomen: normal bowel sounds, soft, non tender Genitourinary: normal external genitalia Extremities: no clubbing 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 Complete 05/17/17 09:00 Urine,Clean Catch Urine Culture - Preliminary NO GROWTH AFTER 24 HOURS Resulted 05/16/17 19:35 Urine,Clean Catch Urine Culture - Preliminary Escherichia Coli Gram Negative Bacillus 2 Resulted 05/16/17 23:15 Rectum VRE Culture - Final NO VANCOMYCIN RESISTANT ENTEROCOCCUS ... Complete Laboratory Tests 05/19/17 07:20: Prothrombin Time 11.4, Prothromb Time International Ratio 1.1 Current Medications Medications (Trade) Dose Ordered Sig/Leisa Route PRN Reason Start Time Stop Time Status Last Admin Dose Admin Acetaminophen (Tylenol) 650 mg Q4H PRN ORAL fever 05/19/17 06:45 06/15/17 22:44 Albuterol/ Ipratropium (DuoNeb 0.5-3(2.5)mg/3ml) 3 ml EVERY 4 HOURS PRN HHN Shortness of Breath 05/19/17 09:00 05/21/17 22:44 Carvedilol (Coreg) 6.25 mg EVERY 12 HOURS ORAL 05/19/17 09:00 06/16/17 08:59 05/19/17 08:52 Dextrose (Dextrose 50%) STAT PRN IV Hypoglycemia 05/19/17 22:45 06/15/17 22:44 Enoxaparin Sodium (Lovenox) 90 mg EVERY 12 HOURS SUBQ 05/19/17 09:00 06/16/17 10:29 05/19/17 08:51 Escitalopram Oxalate (Lexapro) 10 mg DAILY ORAL 05/19/17 09:00 06/16/17 08:59 05/19/17 08:52 Insulin Aspart (NovoLOG) BEFORE MEALS AND HS SUBQ 05/19/17 11:30 06/16/17 06:29 05/19/17 17:06 Levofloxacin (Levaquin) 750 mg DAILY ORAL 05/19/17 09:00 05/25/17 10:59 05/19/17 08:49 Losartan Potassium (Cozaar) 50 mg DAILY ORAL 05/19/17 09:00 06/16/17 08:59 05/19/17 08:50 Morphine Sulfate (Morphine Sulfate) 2 mg EVERY 4 HOURS PRN IVP Moderate Pain (Pain Scale 4-6) 05/19/17 09:00 05/23/17 22:44 Nitroglycerin (Ntg) 0.4 mg Every 5 Minutes PRN SL Prn Chest Pain 05/19/17 06:45 06/15/17 22:44 Ondansetron HCl (Zofran) 4 mg Q6H PRN IVP Nausea & Vomiting 05/19/17 10:45 06/15/17 22:44 Polyethylene Glycol (Miralax) 17 gm DAILYPRN PRN ORAL Constipation 05/19/17 22:45 06/15/17 22:44 Tamsulosin HCl (Flomax) 0.4 mg BEDTIME ORAL 05/19/17 21:00 06/16/17 20:59 Trazodone HCl (Desyrel) 100 mg BEDTIME ORAL 05/19/17 21:00 06/16/17 20:59 Warfarin Sodium (Coumadin per pharmacy) 1 ea DAILY PRN MISC Per rx protocol 05/19/17 09:00 06/16/17 10:14 NANCI FULTON May 19, 2017 18:37
[2017-05-19 20:00] VITALS: BP 141/73
[2017-05-19] MEDS: Tamsulosin 0.4mg cap ORAL SCH (20:33)
[2017-05-19] MEDS: TraZODone 100mg tab ORAL SCH (20:33)
[2017-05-19] MEDS ORDERED: Miralax 17gm pkt ORAL PRN (22:45)
[2017-05-20] VITALS: BP 112/59
[2017-05-20 04:00] VITALS: BP 121/69
[2017-05-20] MEDS: NovoLOG Insulin Flexpen SUBQ SCH ×4 (06:29→21:00)
[2017-05-20 07:12] LABS: BASOPHILS % (AUTO) 0.7 % (0.0-2.0); EOSINOPHILS % (AUTO) 4.7 % (0.0-3.0); LYMPHOCYTES % (AUTO) 28.4 % (20.0-45.0); MEAN CORPUSCULAR HEMOGLOBIN 31.2 PG (27.0-31.0); MEAN CORPUSCULAR HGB CONC 33.1 G/DL (32.0-36.0); MEAN CORPUSCULAR VOLUME 94 FL (80-99); MEAN PLATELET VOLUME 5.2 FL (6.5-10.1); MONOCYTES % (AUTO) 12.8 % (1.0-10.0); NEUTROPHILS % (AUTO) 53.3 % (45.0-75.0); PLATELET COUNT 245 K/UL (150-450); RED BLOOD COUNT 4.16 M/UL (4.70-6.10); RED CELL DISTRIBUTION WIDTH 13.9 % (11.6-14.8); WHITE BLOOD COUNT 5.7 K/UL (4.8-10.8)
[2017-05-20 07:31] LABS: INR 1.4 (0.9-1.1); PROTHROMBIN TIME 14.2 SEC (9.30-11.50)
[2017-05-20 07:49] LABS: ALANINE AMINOTRANSFERASE 7 U/L (3-41); ALBUMIN/GLOBULIN RATIO 1.1 (1.0-2.7); ANION GAP 10 (5-15); ASPARTATE AMINO TRANSFERASE 16 U/L (5-40); CALCIUM 9.4 mg/dL (8.6-10.2); CARBON DIOXIDE 30 mEQ/L (20-30); CHLORIDE 96 mEQ/L (98-107); HEMOLYSIS 0; MAGNESIUM 1.6 mg/dL (1.7-2.5); PHOSPHORUS 3.7 mg/dL (2.5-4.8); POTASSIUM 4.6 mEQ/L (3.4-4.9); SODIUM 136 mEQ/L (135-145); TOTAL PROTEIN 6.8 g/dL (6.6-8.7)
[2017-05-20 08:00] VITALS: BP 129/78
--- NOTE | 2017-05-20 09:20 | General Progress Note ---
Assessment/Plan Assessment/Plan A/P 1. DVT of L iliac --> continue coumadin and lovenox --> inr goal 2-3 --> dc lovenox when inr reaches 2 2. Anemia, mild. Will order w/u if HH drops further 3. Leukocytosis. Resolved Subjective Date patient seen: May 19, 2017 ROS Limited/Unobtainable: Yes Allergies: Coded Allergies: No Known Allergies (Unverified , 01/20/17) Objective Last 24 Hour Vital Signs Date Time Temp Pulse Resp B/P (MAP) Pulse Ox O2 Delivery O2 Flow Rate FiO2 05/20/17 07:50 94 Room Air 21 05/20/17 07:50 Room Air 21 05/20/17 07:50 87 16 Room Air 21 05/20/17 04:00 97.9 77 20 121/69 96 Room Air 05/20/17 00:00 98.6 82 21 112/59 94 Room Air 05/19/17 20:34 76 133/74 05/19/17 20:00 98.4 85 20 141/73 93 Room Air 05/19/17 19:30 Room Air 21 05/19/17 19:30 80 16 Room Air 21 05/19/17 19:30 93 Room Air 21 05/19/17 16:00 97.7 76 18 133/74 93 Room Air 05/19/17 12:00 97.9 80 18 127/75 94 Room Air 05/19/17 10:15 98 Room Air 21 05/19/17 10:15 Room Air 21 05/19/17 10:15 76 16 Room Air 21 Laboratory Tests 05/20/17 04:45: White Blood Count 5.7, Red Blood Count 4.16L, Hemoglobin 13.0L, Hematocrit 39.3L , Mean Corpuscular Volume 94, Mean Corpuscular Hemoglobin 31.2H, Mean Corpuscular Hemoglobin Concent 33.1, Red Cell Distribution Width 13.9, Platelet Count 245, Mean Platelet Volume 5.2L, Neutrophils (%) (Auto) 53.3, Lymphocytes ( %) (Auto) 28.4, Monocytes (%) (Auto) 12.8H, Eosinophils (%) (Auto) 4.7H, Basophils (%) (Auto) 0.7, Prothrombin Time 14.2H, Prothromb Time International Ratio 1.4H, Activated Partial Thromboplast Time 40H, Sodium Level 136, Potassium Level 4.6, Chloride Level 96L, Carbon Dioxide Level 30, Anion Gap 10, Blood Urea Nitrogen 13, Creatinine 1.0, Estimat Glomerular Filtration Rate , Glucose Level 96, Calcium Level 9.4, Phosphorus Level 3.7, Magnesium Level 1.6L , Total Bilirubin 0.6, Aspartate Amino Transf (AST/SGOT) 16, Alanine Aminotransferase (ALT/SGPT) 7, Alkaline Phosphatase 80, Total Protein 6.8, Albumin 3.7, Globulin 3.1, Albumin/Globulin Ratio 1.1 Height (Feet): 6 Height (Inches): 3.00 Weight (Pounds): 199 General Appearance: no apparent distress EENT: normal ENT inspection Neck: normal alignment Cardiovascular: normal rate Respiratory/Chest: no accessory muscle use Extremities: non-tender 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
[2017-05-20] MEDS: Carvedilol 6.25mg Tab ORAL SCH ×2 (10:11→22:57)
[2017-05-20] MEDS: Levofloxacin 500mg tab ORAL SCH (10:12)
[2017-05-20] MEDS: Losartan 50mg tab ORAL SCH (10:12)
[2017-05-20] MEDS: Enoxaparin 100mg Inj SUBQ SCH ×2 (10:14→22:58)
[2017-05-20 12:00] VITALS: BP 137/78
[2017-05-20 16:00] VITALS: BP 128/78
[2017-05-20] MEDS ORDERED: Warfarin Sodium 7.5mg ORAL ONE (17:00)
--- NOTE | 2017-05-20 17:46 | General Progress Note ---
Assessment/Plan Assessment/Plan A/P 1. DVT of L iliac --> continue coumadin and lovenox --> inr goal 2-3 --> dc lovenox when inr reaches 2. Currently inr is at 1.4 2. Anemia, mild. Will order w/u if HH drops further --> remains stable 3. Leukocytosis. Resolved Subjective ROS Limited/Unobtainable: Yes Allergies: Coded Allergies: No Known Allergies (Unverified , 01/20/17) Subjective no events overnight Objective Last 24 Hour Vital Signs Date Time Temp Pulse Resp B/P (MAP) Pulse Ox O2 Delivery O2 Flow Rate FiO2 05/20/17 16:00 98.2 71 19 128/78 96 Room Air 05/20/17 12:00 96.6 72 18 137/78 96 Room Air 05/20/17 10:12 138/78 05/20/17 10:11 76 138/78 05/20/17 08:00 97.5 77 18 129/78 93 Nasal Cannula 05/20/17 07:50 94 Room Air 21 05/20/17 07:50 Room Air 21 05/20/17 07:50 87 16 Room Air 21 05/20/17 04:00 97.9 77 20 121/69 96 Room Air 05/20/17 00:00 98.6 82 21 112/59 94 Room Air 05/19/17 20:34 76 133/74 05/19/17 20:00 98.4 85 20 141/73 93 Room Air 05/19/17 19:30 Room Air 21 05/19/17 19:30 80 16 Room Air 21 05/19/17 19:30 93 Room Air 21 Laboratory Tests 05/20/17 04:45: White Blood Count 5.7, Red Blood Count 4.16L, Hemoglobin 13.0L, Hematocrit 39.3L , Mean Corpuscular Volume 94, Mean Corpuscular Hemoglobin 31.2H, Mean Corpuscular Hemoglobin Concent 33.1, Red Cell Distribution Width 13.9, Platelet Count 245, Mean Platelet Volume 5.2L, Neutrophils (%) (Auto) 53.3, Lymphocytes ( %) (Auto) 28.4, Monocytes (%) (Auto) 12.8H, Eosinophils (%) (Auto) 4.7H, Basophils (%) (Auto) 0.7, Prothrombin Time 14.2H, Prothromb Time International Ratio 1.4H, Activated Partial Thromboplast Time 40H, Sodium Level 136, Potassium Level 4.6, Chloride Level 96L, Carbon Dioxide Level 30, Anion Gap 10, Blood Urea Nitrogen 13, Creatinine 1.0, Estimat Glomerular Filtration Rate , Glucose Level 96, Calcium Level 9.4, Phosphorus Level 3.7, Magnesium Level 1.6L , Total Bilirubin 0.6, Aspartate Amino Transf (AST/SGOT) 16, Alanine Aminotransferase (ALT/SGPT) 7, Alkaline Phosphatase 80, Total Protein 6.8, Albumin 3.7, Globulin 3.1, Albumin/Globulin Ratio 1.1 Height (Feet): 6 Height (Inches): 3.00 Weight (Pounds): 199 General Appearance: no apparent distress EENT: normal ENT inspection Neck: normal inspection Cardiovascular: normal peripheral pulses, no JVD Respiratory/Chest: no respiratory distress, no accessory muscle use Abdomen: non tender, soft Extremities: non-tender Irineo Mcgraw May 20, 2017 17:46
[2017-05-20 20:00] VITALS: BP 147/113
--- NOTE | 2017-05-20 20:45 | Infectious Diseases Prog Note ---
Assessment/Plan Assessment/Plan A; Pyuria/ ?UTI- no dysuria but reported frequency -u/a WBC 20-30, nit +, Ucx >100K E.coli (S. Ceftriaxone, ancef, levo),> 100K K. pna (S. Levo, ancef) bronchitis -CXR: no acute disease -sp cx normal axel Leukocytosis, resolved DM type 2 BPH Vitamin B12 deficiency Lactic acidosis P: Continue Levaquin # 3/5 for presumed UTI; upon discharge, can be discharge on Keflex 500mg PO bid -s/p 3d Azithromycin 05/18 will f/u cultures -Monitor CBC/ BMP, temperatuers -Monitor the patient's chest x-ray. Dicussed with RN Subjective Allergies: Coded Allergies: No Known Allergies (Unverified , 01/20/17) Subjective afebrile leukocytosis resolved feeling better Objective Vital Signs Last 24 Hour Vital Signs Date Time Temp Pulse Resp B/P (MAP) Pulse Ox O2 Delivery O2 Flow Rate FiO2 05/20/17 16:00 98.2 71 19 128/78 96 Room Air 05/20/17 12:00 96.6 72 18 137/78 96 Room Air 05/20/17 10:12 138/78 05/20/17 10:11 76 138/78 05/20/17 08:00 97.5 77 18 129/78 93 Nasal Cannula 05/20/17 07:50 94 Room Air 21 05/20/17 07:50 Room Air 21 05/20/17 07:50 87 16 Room Air 21 05/20/17 04:00 97.9 77 20 121/69 96 Room Air 05/20/17 00:00 98.6 82 21 112/59 94 Room Air Height (Feet): 6 Height (Inches): 3.00 Weight (Pounds): 199 Objective HEENT: No pale conjunctivae. No icterus. NECK: No lymphadenopathy. CHEST: Clear. HEART: S1 and S2. ABDOMEN: Soft and nontender. EXTREMITIES: No cyanosis at this time. NEUROLOGIC: He is awake and alert. Microbiology Date/Time Source Procedure Growth Status 05/18/17 00:00 Sputum Gram Stain - Final Complete 05/18/17 00:00 Sputum Sputum Culture - Final NORMAL UPPER RESPIRATORY AXEL PRESENT Complete Laboratory Tests Test 05/20/17 04:45 White Blood Count 5.7 K/UL (4.8-10.8) Red Blood Count 4.16 M/UL (4.70-6.10) L Hemoglobin 13.0 G/DL (14.2-18.0) L Hematocrit 39.3 % (42.0-52.0) L Mean Corpuscular Volume 94 FL (80-99) Mean Corpuscular Hemoglobin 31.2 PG (27.0-31.0) H Mean Corpuscular Hemoglobin Concent 33.1 G/DL (32.0-36.0) Red Cell Distribution Width 13.9 % (11.6-14.8) Platelet Count 245 K/UL (150-450) Mean Platelet Volume 5.2 FL (6.5-10.1) L Neutrophils (%) (Auto) 53.3 % (45.0-75.0) Lymphocytes (%) (Auto) 28.4 % (20.0-45.0) Monocytes (%) (Auto) 12.8 % (1.0-10.0) H Eosinophils (%) (Auto) 4.7 % (0.0-3.0) H Basophils (%) (Auto) 0.7 % (0.0-2.0) Prothrombin Time 14.2 SEC (9.30-11.50) H Prothromb Time International Ratio 1.4 (0.9-1.1) H Activated Partial Thromboplast Time 40 SEC (23-33) H Sodium Level 136 mEQ/L (135-145) Potassium Level 4.6 mEQ/L (3.4-4.9) Chloride Level 96 mEQ/L (98-107) L Carbon Dioxide Level 30 mEQ/L (20-30) Anion Gap 10 (5-15) Blood Urea Nitrogen 13 mg/dL (7-23) Creatinine 1.0 mg/dL (0.7-1.2) Estimat Glomerular Filtration Rate mL/min (>60) Glucose Level 96 mg/dL (74-106) Calcium Level 9.4 mg/dL (8.6-10.2) Phosphorus Level 3.7 mg/dL (2.5-4.8) Magnesium Level 1.6 mg/dL (1.7-2.5) L Total Bilirubin 0.6 mg/dL (0.0-1.2) Aspartate Amino Transf (AST/SGOT) 16 U/L (5-40) Alanine Aminotransferase (ALT/SGPT) 7 U/L (3-41) Alkaline Phosphatase 80 U/L (40-129) Total Protein 6.8 g/dL (6.6-8.7) Albumin 3.7 g/dL (3.5-5.2) Globulin 3.1 g/dL Albumin/Globulin Ratio 1.1 (1.0-2.7) Current Medications Medications (Trade) Dose Ordered Sig/Leisa Route PRN Reason Start Time Stop Time Status Last Admin Dose Admin Acetaminophen (Tylenol) 650 mg Q4H PRN ORAL fever 05/19/17 06:45 06/15/17 22:44 Albuterol/ Ipratropium (DuoNeb 0.5-3(2.5)mg/3ml) 3 ml EVERY 4 HOURS PRN HHN Shortness of Breath 05/19/17 09:00 05/21/17 22:44 Carvedilol (Coreg) 6.25 mg EVERY 12 HOURS ORAL 05/19/17 09:00 06/16/17 08:59 05/20/17 10:11 Dextrose (Dextrose 50%) STAT PRN IV Hypoglycemia 05/19/17 22:45 06/15/17 22:44 Enoxaparin Sodium (Lovenox) 90 mg EVERY 12 HOURS SUBQ 05/19/17 09:00 06/16/17 10:29 05/20/17 10:14 Escitalopram Oxalate (Lexapro) 10 mg DAILY ORAL 05/19/17 09:00 06/16/17 08:59 05/20/17 10:13 Insulin Aspart (NovoLOG) BEFORE MEALS AND HS SUBQ 05/19/17 11:30 06/16/17 06:29 05/19/17 20:36 Levofloxacin (Levaquin) 750 mg DAILY ORAL 05/19/17 09:00 05/25/17 10:59 05/20/17 10:12 Losartan Potassium (Cozaar) 50 mg DAILY ORAL 05/19/17 09:00 06/16/17 08:59 05/20/17 10:12 Morphine Sulfate (Morphine Sulfate) 2 mg EVERY 4 HOURS PRN IVP Moderate Pain (Pain Scale 4-6) 05/19/17 09:00 05/23/17 22:44 Nitroglycerin (Ntg) 0.4 mg Every 5 Minutes PRN SL Prn Chest Pain 05/19/17 06:45 06/15/17 22:44 Ondansetron HCl (Zofran) 4 mg Q6H PRN IVP Nausea & Vomiting 05/19/17 10:45 06/15/17 22:44 Polyethylene Glycol (Miralax) 17 gm DAILYPRN PRN ORAL Constipation 05/19/17 22:45 06/15/17 22:44 Tamsulosin HCl (Flomax) 0.4 mg BEDTIME ORAL 05/19/17 21:00 06/16/17 20:59 05/19/17 20:33 Trazodone HCl (Desyrel) 100 mg BEDTIME ORAL 05/19/17 21:00 06/16/17 20:59 05/19/17 20:33 Warfarin Sodium (Coumadin per pharmacy) 1 ea DAILY PRN MISC Per rx protocol 05/19/17 09:00 06/16/17 10:14 Lynne Meng M.D. May 20, 2017 20:45
--- NOTE | 2017-05-20 21:54 | Pulmonology Progress Note ---
Assessment/Plan Problems: (1) Sepsis (2) Urinary tract infection (3) Hypertension (4) Diabetes mellitus (5) Weakness of both legs (6) Episode of generalized weakness Assessment/Plan dvt treatment on coumadin and lovenox check cultures echo f/u INR dialy dc probably in am Subjective ROS Limited/Unobtainable: No Interval Events: INR was 1.4 today Allergies: Coded Allergies: No Known Allergies (Unverified , 01/20/17) Objective Last 24 Hour Vital Signs Date Time Temp Pulse Resp B/P (MAP) Pulse Ox O2 Delivery O2 Flow Rate FiO2 05/20/17 20:00 97.9 95 20 147/113 95 Room Air 05/20/17 16:00 98.2 71 19 128/78 96 Room Air 05/20/17 12:00 96.6 72 18 137/78 96 Room Air 05/20/17 10:12 138/78 05/20/17 10:11 76 138/78 05/20/17 08:00 97.5 77 18 129/78 93 Nasal Cannula 05/20/17 07:50 94 Room Air 21 05/20/17 07:50 Room Air 21 05/20/17 07:50 87 16 Room Air 21 05/20/17 04:00 97.9 77 20 121/69 96 Room Air 05/20/17 00:00 98.6 82 21 112/59 94 Room Air Intake and Output 05/20/17 05/21/17 19:00 07:00 # Voids 2 General Appearance: WD/WN HEENT: normocephalic, atraumatic Respiratory/Chest: chest wall non-tender, lungs clear Cardiovascular: normal peripheral pulses, normal rate Abdomen: normal bowel sounds, soft, non tender Genitourinary: normal external genitalia Extremities: no cyanosis Skin: no rash 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, no motor/sensory deficits Microbiology Date/Time Source Procedure Growth Status 05/18/17 00:00 Sputum Gram Stain - Final Complete 05/18/17 00:00 Sputum Sputum Culture - Final NORMAL UPPER RESPIRATORY PEYMAN PRESENT Complete Laboratory Tests 05/20/17 04:45: White Blood Count 5.7, Red Blood Count 4.16L, Hemoglobin 13.0L, Hematocrit 39.3L , Mean Corpuscular Volume 94, Mean Corpuscular Hemoglobin 31.2H, Mean Corpuscular Hemoglobin Concent 33.1, Red Cell Distribution Width 13.9, Platelet Count 245, Mean Platelet Volume 5.2L, Neutrophils (%) (Auto) 53.3, Lymphocytes ( %) (Auto) 28.4, Monocytes (%) (Auto) 12.8H, Eosinophils (%) (Auto) 4.7H, Basophils (%) (Auto) 0.7, Prothrombin Time 14.2H, Prothromb Time International Ratio 1.4H, Activated Partial Thromboplast Time 40H, Sodium Level 136, Potassium Level 4.6, Chloride Level 96L, Carbon Dioxide Level 30, Anion Gap 10, Blood Urea Nitrogen 13, Creatinine 1.0, Estimat Glomerular Filtration Rate , Glucose Level 96, Calcium Level 9.4, Phosphorus Level 3.7, Magnesium Level 1.6L , Total Bilirubin 0.6, Aspartate Amino Transf (AST/SGOT) 16, Alanine Aminotransferase (ALT/SGPT) 7, Alkaline Phosphatase 80, Total Protein 6.8, Albumin 3.7, Globulin 3.1, Albumin/Globulin Ratio 1.1 Current Medications Medications (Trade) Dose Ordered Sig/Leisa Route PRN Reason Start Time Stop Time Status Last Admin Dose Admin Acetaminophen (Tylenol) 650 mg Q4H PRN ORAL fever 05/19/17 06:45 06/15/17 22:44 Albuterol/ Ipratropium (DuoNeb 0.5-3(2.5)mg/3ml) 3 ml EVERY 4 HOURS PRN HHN Shortness of Breath 05/19/17 09:00 05/21/17 22:44 Carvedilol (Coreg) 6.25 mg EVERY 12 HOURS ORAL 05/19/17 09:00 06/16/17 08:59 05/20/17 10:11 Dextrose (Dextrose 50%) STAT PRN IV Hypoglycemia 05/19/17 22:45 06/15/17 22:44 Enoxaparin Sodium (Lovenox) 90 mg EVERY 12 HOURS SUBQ 05/19/17 09:00 06/16/17 10:29 05/20/17 10:14 Escitalopram Oxalate (Lexapro) 10 mg DAILY ORAL 05/19/17 09:00 06/16/17 08:59 05/20/17 10:13 Insulin Aspart (NovoLOG) BEFORE MEALS AND HS SUBQ 05/19/17 11:30 06/16/17 06:29 05/19/17 20:36 Levofloxacin (Levaquin) 750 mg DAILY ORAL 05/19/17 09:00 05/25/17 10:59 05/20/17 10:12 Losartan Potassium (Cozaar) 50 mg DAILY ORAL 05/19/17 09:00 06/16/17 08:59 05/20/17 10:12 Morphine Sulfate (Morphine Sulfate) 2 mg EVERY 4 HOURS PRN IVP Moderate Pain (Pain Scale 4-6) 05/19/17 09:00 05/23/17 22:44 Nitroglycerin (Ntg) 0.4 mg Every 5 Minutes PRN SL Prn Chest Pain 05/19/17 06:45 06/15/17 22:44 Ondansetron HCl (Zofran) 4 mg Q6H PRN IVP Nausea & Vomiting 05/19/17 10:45 06/15/17 22:44 Polyethylene Glycol (Miralax) 17 gm DAILYPRN PRN ORAL Constipation 05/19/17 22:45 06/15/17 22:44 Tamsulosin HCl (Flomax) 0.4 mg BEDTIME ORAL 05/19/17 21:00 06/16/17 20:59 05/19/17 20:33 Trazodone HCl (Desyrel) 100 mg BEDTIME ORAL 05/19/17 21:00 06/16/17 20:59 05/19/17 20:33 Warfarin Sodium (Coumadin per pharmacy) 1 ea DAILY PRN MISC Per rx protocol 05/19/17 09:00 06/16/17 10:14 NANCI FULTON May 20, 2017 21:54
[2017-05-20] MEDS: Tamsulosin 0.4mg cap ORAL SCH (22:57)
[2017-05-20] MEDS: TraZODone 100mg tab ORAL SCH (23:00)
[2017-05-21] VITALS: BP 132/109
[2017-05-21 04:40] VITALS: BP 120/63
[2017-05-21] MEDS: NovoLOG Insulin Flexpen SUBQ SCH ×3 (06:30→16:30)
[2017-05-21 08:00] VITALS: BP 130/83
[2017-05-21] MEDS: Levofloxacin 500mg tab ORAL SCH (09:51)
[2017-05-21] MEDS: Carvedilol 6.25mg Tab ORAL SCH (09:51)
[2017-05-21] MEDS: Losartan 50mg tab ORAL SCH (09:51)
[2017-05-21] MEDS: Enoxaparin 100mg Inj SUBQ SCH (09:55)
[2017-05-21 11:58] LABS: INR 2.3 (0.9-1.1); PROTHROMBIN TIME 24.6 SEC (9.30-11.50)
[2017-05-21 12:00] VITALS: BP 117/61
[2017-05-21] MEDS ORDERED: COUMADIN3 MG ORAL (15:38)
--- NOTE | 2017-05-21 15:40 | Pulmonology Progress Note ---
Assessment/Plan Problems: (1) Sepsis (2) Urinary tract infection (3) Hypertension (4) Diabetes mellitus (5) Weakness of both legs (6) Episode of generalized weakness Assessment/Plan dvt treatment on coumadin and lovenox INR is therapeutic dc probably i \ dc to assisted living. Subjective ROS Limited/Unobtainable: No Constitutional: Reports: no symptoms HEENT: Repors: no symptoms Respiratory: Reports: no symptoms Cardiovascular: Reports: no symptoms Allergies: Coded Allergies: No Known Allergies (Unverified , 01/20/17) Objective Last 24 Hour Vital Signs Date Time Temp Pulse Resp B/P (MAP) Pulse Ox O2 Delivery O2 Flow Rate FiO2 05/21/17 12:00 97.3 73 20 117/61 98 Room Air 05/21/17 09:51 130/83 05/21/17 09:51 74 130/83 05/21/17 08:00 97.9 74 20 130/83 94 Room Air 05/21/17 06:50 74 16 Room Air 05/21/17 04:40 98.0 81 20 120/63 96 Nasal Cannula 05/21/17 00:00 98.0 89 20 132/109 96 Room Air 05/20/17 22:57 95 147/113 05/20/17 20:00 97.9 95 20 147/113 95 Room Air 05/20/17 19:30 92 16 Room Air 21 05/20/17 16:00 98.2 71 19 128/78 96 Room Air General Appearance: WD/WN HEENT: normocephalic, anicteric Respiratory/Chest: chest wall non-tender, lungs clear Cardiovascular: normal peripheral pulses, normal rate Abdomen: normal bowel sounds, soft, non tender Genitourinary: normal external genitalia Extremities: no cyanosis, no clubbing Skin: no lesions 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, no motor/sensory deficits, alert Lymphatic: no neck adenopathy Laboratory Tests 05/21/17 11:30: Prothrombin Time 24.6H, Prothromb Time International Ratio 2.3H Current Medications Medications (Trade) Dose Ordered Sig/Leisa Route PRN Reason Start Time Stop Time Status Last Admin Dose Admin Acetaminophen (Tylenol) 650 mg Q4H PRN ORAL fever 05/19/17 06:45 06/15/17 22:44 Albuterol/ Ipratropium (DuoNeb 0.5-3(2.5)mg/3ml) 3 ml EVERY 4 HOURS PRN HHN Shortness of Breath 05/19/17 09:00 05/21/17 22:44 Carvedilol (Coreg) 6.25 mg EVERY 12 HOURS ORAL 05/19/17 09:00 06/16/17 08:59 05/21/17 09:51 Dextrose (Dextrose 50%) STAT PRN IV Hypoglycemia 05/19/17 22:45 06/15/17 22:44 Enoxaparin Sodium (Lovenox) 90 mg EVERY 12 HOURS SUBQ 05/19/17 09:00 06/16/17 10:29 05/21/17 09:55 Escitalopram Oxalate (Lexapro) 10 mg DAILY ORAL 05/19/17 09:00 06/16/17 08:59 05/21/17 09:50 Insulin Aspart (NovoLOG) BEFORE MEALS AND HS SUBQ 05/19/17 11:30 06/16/17 06:29 05/21/17 12:14 Levofloxacin (Levaquin) 750 mg DAILY ORAL 05/19/17 09:00 05/25/17 10:59 05/21/17 09:51 Losartan Potassium (Cozaar) 50 mg DAILY ORAL 05/19/17 09:00 06/16/17 08:59 05/21/17 09:51 Morphine Sulfate (Morphine Sulfate) 2 mg EVERY 4 HOURS PRN IVP Moderate Pain (Pain Scale 4-6) 05/19/17 09:00 05/23/17 22:44 Nitroglycerin (Ntg) 0.4 mg Every 5 Minutes PRN SL Prn Chest Pain 05/19/17 06:45 06/15/17 22:44 Ondansetron HCl (Zofran) 4 mg Q6H PRN IVP Nausea & Vomiting 05/19/17 10:45 06/15/17 22:44 Polyethylene Glycol (Miralax) 17 gm DAILYPRN PRN ORAL Constipation 05/19/17 22:45 06/15/17 22:44 Tamsulosin HCl (Flomax) 0.4 mg BEDTIME ORAL 05/19/17 21:00 06/16/17 20:59 05/20/17 22:57 Trazodone HCl (Desyrel) 100 mg BEDTIME ORAL 05/19/17 21:00 06/16/17 20:59 05/20/17 23:00 Warfarin Sodium (Coumadin per pharmacy) 1 ea DAILY PRN MISC Per rx protocol 05/19/17 09:00 06/16/17 10:14 Warfarin Sodium (Coumadin) 5 mg COUMADIN ONCE ORAL 05/21/17 17:00 05/21/17 17:01 NANCI FULTON May 21, 2017 15:40
[2017-05-21 15:59] VITALS: BP 132/76
--- NOTE | 2017-05-21 16:48 | General Progress Note ---
Assessment/Plan Assessment/Plan A/P 1. DVT of L iliac --> continue coumadin --> inr goal 2-3 2. Anemia, mild. Will order w/u if HH drops further --> remains stable 3. Leukocytosis. Resolved Subjective Constitutional: Reports: no symptoms HEENT: Reports: no symptoms Cardiovascular: Reports: no symptoms Respiratory: Reports: no symptoms Gastrointestinal/Abdominal: Reports: no symptoms Genitourinary: Reports: no symptoms Neurologic/Psychiatric: Reports: no symptoms Endocrine: Reports: no symptoms Hematologic/Lymphatic: Reports: no symptoms Allergies: Coded Allergies: No Known Allergies (Unverified , 01/20/17) Subjective no events overnight, dc lovenox, inr has reached goal Objective Last 24 Hour Vital Signs Date Time Temp Pulse Resp B/P (MAP) Pulse Ox O2 Delivery O2 Flow Rate FiO2 05/21/17 15:59 98.4 73 20 132/76 95 Room Air 05/21/17 12:00 97.3 73 20 117/61 98 Room Air 05/21/17 09:51 130/83 05/21/17 09:51 74 130/83 05/21/17 08:00 97.9 74 20 130/83 94 Room Air 05/21/17 06:50 74 16 Room Air 05/21/17 04:40 98.0 81 20 120/63 96 Nasal Cannula 05/21/17 00:00 98.0 89 20 132/109 96 Room Air 05/20/17 22:57 95 147/113 05/20/17 20:00 97.9 95 20 147/113 95 Room Air 05/20/17 19:30 92 16 Room Air 21 Laboratory Tests 05/21/17 11:30: Prothrombin Time 24.6H, Prothromb Time International Ratio 2.3H Height (Feet): 6 Height (Inches): 3.00 Weight (Pounds): 199 General Appearance: no apparent distress EENT: normal ENT inspection Neck: normal alignment Cardiovascular: normal peripheral pulses Respiratory/Chest: chest wall non-tender Abdomen: non tender 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
[2017-05-21] MEDS ORDERED: Warfarin Sodium 5mg ORAL ONE (17:00)
--- NOTE | 2017-05-23 13:51 | Discharge Summary ---
Discharge Summary Hospital Course Date of Admission May 16, 2017 at 21:40 Date of Discharge May 21, 2017 at 18:59 Admitting Diagnosis sepsis, generalized weakness HPI Dany Nguyen is a 82 year old male who was admitted on May 16, 2017 at 21:40 for Sepsis,Generalized Weakness Hospital Course [id number] Discharge Discharge Disposition Patient was discharged to [facility] assisted living Discharge Diagnoses: Purvi Hoskins NP May 23, 2017 13:51
--- NOTE | 2017-05-23 21:15 | Discharge Summary 2 SIG ---
DATE OF ADMISSION: 05/16/2017 DATE OF DISCHARGE: 05/21/2017 CONSULTANTS: 1. Irineo Mcgraw M.D. 2. Rocio Meng M.D. Brief Hospital Course: The patient is an 82-year-old male, who presented to ED after increased weakness. The patient had gradual onset of symptoms and had increased difficulty standing. On evaluation at ED, WBC was elevated to 13. The patient was noted to have evidence of bilateral lower extremity weakness. Urine with signs of infection. EKG done showed normal sinus rhythm. Chest x-ray showed no evident infiltrates with normal cardiac size and normal mediastinum. The patient was admitted for possible sepsis and urinary tract infection. He was started on IV antibiotics. He was given Unasyn at ED and vancomycin. He was seen by Infectious Diseases specialist, antibiotic was switched to Zithromax. Urine culture showed growth of E. coli and Klebsiella. Azithromycin was discontinued and was switched to Levaquin. There was a possible bronchitis. Chest x-ray showed no acute disease. Sputum culture showed normal axel. Venous duplex of the lower extremity showed acute DVT in the external iliac vein. He was started on Lovenox and Coumadin with INR goal between 2 to 3. Anemia was assessed to be secondary to chronic disease. Hyponatremia was secondary to dehydration and has been volume repleted. Lovenox was discontinued. INR goal was reached. The patient was then advised to continue with Coumadin. The patient was eventually discharged back to [facility]. FINAL DIAGNOSES: 1. Acute deep vein thrombosis, left leg. 2. Urinary tract infection with Escherichia coli and Klebsiella. 3. Acute bronchitis. 4. Diabetes type 2. 5. Benign prostatic hypertrophy. 6. Vitamin B12 deficiency. 7. Lactic acidosis. 8. Anemia of chronic disease. 9. Hyponatremia, potentially secondary to dehydration. 10. Generalized weakness. 11. Hypertension. Disposition: The patient was discharged back to [facility]. Discharge Medications: Refer to medication list. Continue with Coumadin 3 mg daily. Mera Elder M.D. I have been assigned to dictate discharge summary on this account and I was not involved in the patient's management. Purvi Hoskins N.P. DR: LILLY JOB#: [id number] CC: SILVIANO
--- NOTE | 2017-06-08 17:46 | Cardiology Report ---
APPROVED REPORT EKG Measurement Heart [id number] Sinus tachycardia with premature supraventricular complexes Left axis deviation Septal infarct, age undetermined Abnormal ECG
== END 2017-05-21 18:59 | disposition home or self-care (01) | DRG 300 ==
LOC: EDBD 17:46 → EMR 18:30 → 2E 21:40 → EDBEDREQ 23:31 → 4E 05-19 05:51
DX: I82.422 Acute embolism and thrombosis of left iliac vein (principal); N39.0 Urinary tract infection, site not specified; B96.1 Klebsiella pneumoniae [K. pneumoniae] as the cause of diseases classified elsewhere; E87.1 Hypo-osmolality and hyponatremia; E11.9 Type 2 diabetes mellitus without complications; I10 Essential (primary) hypertension; B96.20 Unspecified Escherichia coli [E. coli] as the cause of diseases classified elsewhere; D63.8 Anemia in other chronic diseases classified elsewhere; K21.9 Gastro-esophageal reflux disease without esophagitis; N40.0 Benign prostatic hyperplasia without lower urinary tract symptoms; E53.8 Deficiency of other specified B group vitamins; R53.1 Weakness; J20.9 Acute bronchitis, unspecified; E86.0 Dehydration
CPT/HCPCS: 36415; 71010; 80053; 81001; 81003; 82550; 82553; 82962; 83605; 83735; 83930; 83935; 84100; 84300; 84439; 84443; 84481; 84484; 84550; 85025; 85610; 85730; 87040; 87070; 87081; 87086; 87181; 87205; 93005; 93306; 93970; 94664; 94760; 99285; J1815